=== PATIENT | female | born 1945 | race African-American/Black ===

== ENCOUNTER 2018-01-23 07:36 | Inpatient (IN) | payer OTHER, MEDICARE ==
[2018-01-23 07:59] VITALS: BMI 38.1
--- NOTE | 2018-01-23 08:54 | PDOC ---
History of Present Illness - General Chief Complaint: Revisit,Radiology Variance Stated Complaint: PCP SENT Time Seen by Provider: 01/23/18 08:15 History Source: Patient - History of Present Illness Initial Comments: 72 y/o F w/PMH of HTN, HLD, IDDM, GERD presents to the ER after being sent in by PCP. Pt had cardiac stress test done on January 15, 2018 which showed "Large sized moderate intensity anterior wall reversible perfusion defect consistent with ischemia. Large sized moderate intensity inferior wall reversible perfusion defect consistent with ischemia. Normal ejection fraction 59%." Pt has been having cold symptoms for the last 1.5 weeks which include dry cough and chest tightness due to the cough and she feels a drip down her throat. She is otherwise in her usual state of health, walking daily (2 laps/day) without issue. Denies CP, chest pressure, SOB, abd pain, diaphoresis, change in bowel movements, dysuria, LE edema, dysnpea on exertion, sick contacts, recent travel. Pt was told to come in last night but went to admissions rather than ER and came back in today through the ER. Last flight was in October to [place]. PMH: HTN, HLD, IDDM, GERD SH: Quit smoking 10 years ago (0.5-1ppd since a teenager); Social alcohol use; No drug use FH: Father passed from [place] in his 60s Allergies: NKDA Past History - Travel Traveled outside of the country in the last 30 days: No - Past Medical History Allergies/Adverse Reactions: Allergies Allergy/AdvReac Type Severity Reaction Status Date / Time No Known Allergies Allergy Verified 01/23/18 07:47 Home Medications: Ambulatory Orders Aspirin [ASA -] 81 mg PO DAILY 01/25/13 Glyburide/Metformin HCl [Glyburide-Metformin 5-500 mg] 1 each PO BID 01/25/13 Insulin (Levemir) [Levemir Flexpen -] 20 units SQ BID 01/25/13 Lisinopril/Hydrochlorothiazide [Lisinopril-Hctz 10-12.5 mg Tab] 1 each PO DAILY 01/25/13 Rosuvastatin Calcium [Crestor] 10 mg PO DAILY 01/25/13 Omeprazole 40 mg PO DAILY 01/23/18 COPD: No Diabetes: Yes HTN: Yes Hypercholesterolemia: Yes - Immunization History Immunization Up to Date: Yes - Suicide/Smoking/Psychosocial Hx Smoking Status: No Smoking History: Never smoked Number of Cigarettes Smoked Daily: 0 Review of Systems - Review of Systems Able to Perform ROS?: Yes Constitutional: No: Chills, Fever Respiratory: Yes: Cough (dry). No: Shortness of Breath, SOB with Exertion, SOB at Rest Cardiac (ROS): Yes: Chest Tightness. No: Chest Pain, Palpitations ABD/GI: No: Nausea, Vomiting : No: Dysuria *Physical Exam - Vital Signs Last Vital Signs Temp Pulse Resp BP Pulse Ox 99.2 F 74 18 143/72 99 01/23/18 07:47 01/23/18 07:47 01/23/18 07:47 01/23/18 07:47 01/23/18 07:47 - Physical Exam General Appearance: Yes: Nourished, Appropriately Dressed. No: Apparent Distress HEENT: positive: EOMI Neck: positive: Supple Respiratory/Chest: positive: Lungs Clear, Normal Breath Sounds. negative: Respiratory Distress Cardiovascular: positive: S1, S2, Murmur (diastolic murmur), Irregular Gastrointestinal/Abdominal: positive: Normal Bowel Sounds, Soft. negative: Tender Extremity: negative: Pedal Edema, Swelling, Erythema Neurologic: positive: Fully Oriented, Alert, Normal Mood/Affect ED Treatment Course - LABORATORY CBC & Chemistry Diagram: 01/23/18 08:54 01/23/18 08:54 Medical Decision Making - Medical Decision Making 01/23/18 08:58 Pt with abnormal stress test on 01/15/18: "Large sized moderate intensity anterior wall reversible perfusion defect consistent with ischemia. Large sized moderate intensity inferior wall reversible perfusion defect consistent with ischemia. Normal ejection fraction 59%." Sent in by PCP for chest pain and dyspnea. Pt has been having cough and chest tightness. Will check labs, UA, CXR, EKG, rectal temp. Will also r/o PNA at this time. Will give 325 mg aspirin at this time as well. 01/23/18 09:49 EKG shows: NSR w/PACs @ 81 bpm. QTc 453[address]. No [address] segment elevations or depressions noted. No TWI noted. 01/23/18 10:03 Labs unremarkable. Trop negative. 01/23/18 10:[address] Cesar on phone. He would also like to r/o PE at this time. To consult Dr. Le for Cardiology. Pt to be admitted under Dr. Pierson's service. Spoke with Dr. Neal regarding pt and to be admitted. CXR w/no acute pathology. Rectal temp 97.4 01/23/18 10:[address] Neal regarding pt and to be admitted. 01/23/18 10:47 D-dimer elevated at 619. Will get CTA to r/o PE. Spoke with patient regarding risks and benefits of CTA and pt is in agreement to get CTA chest to r/o PE. Will hydrate with NS @ 100 ml/hr (1ml/kg/hr). *DC/Admit/Observation/Transfer Diagnosis at time of Disposition: Abnormal stress test - Discharge Dispostion Decision to Admit order: Yes - Referrals Referrals: Juan Carlos Cesar MD [Primary Care Provider] - - Patient Instructions - Post Discharge Activity
[2018-01-23] MEDS ORDERED: ASPIRIN 81 MG CHEWABLE TABLETS PO ONE ×2 (08:59→09:57)
[2018-01-23 09:21] LABS: URINE APPEARANCE SLCLOUDY; URINE BILIRUBIN NEGATIVE (<2.0 mg/dL); URINE COLOR YELLOW; URINE GLUCOSE (UA) NEGATIVE (NEGATIVE); URINE KETONE TRACE (NEGATIVE); URINE LEUK ESTERASE 1+ (NEGATIVE); URINE NITRITE NEGATIVE (NEGATIVE); URINE PROTEIN NEGATIVE (NEGATIVE)
[2018-01-23 09:22] LABS: BASO % 1.2 % (0-2.0); EOS % 1.4 % (0-4.5); HEMATOCRIT 39.7 % (32.4-45.2); HEMOGLOBIN 12.7 GM/dL (10.7-15.3); LYMPH % 37.3 % (8-40); MCH 26.2 pg (25.7-33.7); MCHC 31.9 g/dl (32.0-36.0); MEAN PLT VOLUME 9.2 fl (7.5-11.1); MONO % 6.4 % (3.8-10.2); NEUT % 53.7 % (42.8-82.8); PLATELET COUNT 246 K/MM3 (134-434); RBC 4.84 M/mm3 (3.60-5.2); RDW 14.1 % (11.6-15.6); WHITE BLOOD COUNT 6.3 K/mm3 (4.0-10.0)
[2018-01-23] MEDS ORDERED: ASPIRIN 81 MG CHEWABLE TABLETS ONE ×2 (09:23→09:29)
[2018-01-23 09:36] LABS: EPI CELLS MODERATE /HPF (FEW); URINE BACTERIA RARE /hpf (NONE SEEN); URINE HYALINE CAST 4 /lpf; URINE MUCUS RARE
--- NOTE | 2018-01-23 09:48 | PDOC ---
Attending Attestation - Resident Resident Name: Jake Hale - ED Attending Attestation I have performed the following: I have examined & evaluated the patient, The case was reviewed & discussed with the resident, I agree w/resident's findings & plan, Exceptions are as noted (this is really her father of an [place] in the 60s) - HPI HPI: 01/23/18 09:44 9-year-old female history of hypertension diabetes hyperlipidemia here today complaining of recent cough nasal congestion and additional chest pain. Patient states that she has had a cough for a few days which is nonproductive. She does also have some postnasal drip no shortness of breath no wheezing denies any fevers or chills no nausea vomiting chest pain is described as a chest tightness she gets with intermittent coughing denies any current symptoms no history of prior PE or DVT no recent leg swelling no fevers no chills patient had a stress test done which was ordered by Dr. mena walked on January 14 which was noted for anterior and inferior defects she was told to come to the hospital yesterday has not yet had a coronary catheter - Physicial Exam PE: 01/23/18 09:46 Awake alert no acute distress lungs are clear bilaterally there is no chest wall tenderness heart is regular there is a noted systolic murmur 2 out of 6 abdomen is soft nontender nondistended extremities are warm and well-perfused there is no noted peripheral edema alert and oriented 3 strength is 5 out of 5 throughout skin is warm and dry - Medical Decision Making 01/23/18 09:46 32-year-old female multiple risk factors here today complaining of intermittent chest pain and cough. Due to the patient's recent abnormal stress and risk factors of diabetes hypertension hyperlipidemia and family history she will be admitted for cardiac rule out patient may require cardiac catheterization will discuss with Dr. 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 We will give her 324 aspirin currently x-ray to rule out any underlying pneumonia effusion or other lung abnormalities. EKG Heart Score/ECG Review #1 ECG reviewed & interpreted by me at: 09:48 General ECG Interpretation: Sinus Rhythm, Normal Rate (81), Normal Intervals, No acute ischemic changes Compared to previous ECG there are: Other (TWI III only, left axis. pvc.)
[2018-01-23 09:50] LABS: ALBUMIN 3.6 g/dl (3.4-5.0); ALK PHOS 91 U/L (45-117); ANION GAP 9 MMOL/L (8-16); BILIRUBIN,TOTAL 0.5 mg/dL (0.2-1); BLOOD UREA NITROGEN 17 mg/dL (7-18); CALCIUM 9.7 mg/dL (8.5-10.1); CHLORIDE 105 mmol/L (98-107); CO2 27 mmol/L (21-32); CREATININE 0.9 mg/dL (0.55-1.3); GLUCOSE,RANDOM 133 mg/dL (74-106); POTASSIUM 4.1 mmol/L (3.5-5.1); SGOT/AST 16 U/L (15-37); SGPT/ALT 20 U/L (13-61); SODIUM 141 mmol/L (136-145); TOT PROT 7.8 g/dl (6.4-8.2)
[2018-01-23] MEDS ORDERED: SODIUM CHLORIDE 1,000 ML IV SCH (11:15)
--- NOTE | 2018-01-23 11:15 | HP ---
Admitting History and Physical - Primary Care Physician PCP: Juan Carlos Cesar - Admission Chief Complaint: sent in for abnormal stress test History of Present Illness: 72 y/o F w/PMH of HTN, HLD, DM, GERD presents to the ER after being sent in by PCP. Pt had cardiac stress test done on January 15, 2018 which showed "Large sized moderate intensity anterior wall reversible perfusion defect consistent with ischemia. Large sized moderate intensity inferior wall reversible perfusion defect consistent with ischemia. Normal ejection fraction 59%." Pt has been having cold symptoms for the last 1.5 weeks which include dry cough and chest tightness due to the cough and she feels a drip down her throat. per patient she has this dry non productive cough for which she has been taking tussin. she denies chest pain,palpitations, no nausea no vomitting on labs noted to have elevated D dimer History Source: Patient, Medical Record - Past Medical History Cardiovascular: Yes: HTN, Hyperlipdemia Gastrointestinal: Yes: GERD Endocrine: Yes: Diabetes Mellitus - Smoking History Smoking history: Never smoked Aproximately how many cigarettes per day: 0 Home Medications - Allergies Allergies/Adverse Reactions: Allergies Allergy/AdvReac Type Severity Reaction Status Date / Time No Known Allergies Allergy Verified 01/23/18 07:47 - Home Medications Home Medications: Ambulatory Orders Aspirin [ASA -] 81 mg PO DAILY 01/25/13 Glyburide/Metformin HCl [Glyburide-Metformin 5-500 mg] 1 each PO BID 01/25/13 Insulin (Levemir) [Levemir Flexpen -] 20 units SQ BID 01/25/13 Lisinopril/Hydrochlorothiazide [Lisinopril-Hctz 10-12.5 mg Tab] 1 each PO DAILY 01/25/13 Rosuvastatin Calcium [Crestor] 10 mg PO DAILY 01/25/13 Omeprazole 40 mg PO DAILY 01/23/18 Review of Systems - Review of Systems Respiratory: reports: Cough Physical Examination Vital Signs: Vital Signs Temperature 97.4 F L 01/23/18 10:11 Pulse Rate 74 01/23/18 07:47 Respiratory Rate 18 01/23/18 07:47 Blood Pressure 143/72 01/23/18 07:47 O2 Sat by Pulse Oximetry (%) 100 01/23/18 09:07 Constitutional: Yes: Calm Cardiovascular: Yes: Regular Rate and Rhythm, Murmur, S1, S2 Respiratory: Yes: CTA Bilaterally Gastrointestinal: Yes: Normal Bowel Sounds, Soft Edema: No Neurological: Yes: Alert, Oriented Labs: CBC, BMP 01/23/18 08:54 01/23/18 08:54 Imaging - Results Chest X-ray: Report Reviewed (no active disease) Problem List - Problems (1) Elevated d-dimer Assessment/Plan: cta to r/o PE echo to evaluate aortic valve and right heart pressure Code(s): R79.89 - OTHER SPECIFIED ABNORMAL FINDINGS OF BLOOD CHEMISTRY (2) Abnormal stress test Assessment/Plan: tele cardiology eval aspirin lipitor lisinopril cardiac cath per cardiology request Code(s): R94.39 - ABNORMAL RESULT OF OTHER CARDIOVASCULAR FUNCTION STUDY (3) Diabetes Assessment/Plan: sliding scale levemir [id number] diabetic diet bgm ac/hs endocrine consult hold oral hypoglycemic to get CTA Code(s): E11.9 - TYPE 2 DIABETES MELLITUS WITHOUT COMPLICATIONS Qualifiers: Diabetes mellitus type: type 2 (4) HLD (hyperlipidemia) Assessment/Plan: statin lipid profile Code(s): E78.5 - HYPERLIPIDEMIA, UNSPECIFIED (5) HTN (hypertension) Assessment/Plan: on lisinopril and htcz Code(s): I10 - ESSENTIAL (PRIMARY) HYPERTENSION
[2018-01-23 11:59] LABS: CHOLESTEROL 143 mg/dL (50-200); HDL CHOLESTEROL 50 mg/dL (40-60); TRIGLYCERIDES 81 mg/dL (0-150)
--- NOTE | 2018-01-23 15:00 | EKG ---
Test Reason : Blood Pressure : / mmHG Vent. Rate : 081 BPM Atrial Rate : 081 BPM P-R Int : 134 ms QRS Dur : 076 ms QT Int : 390 ms P-R-T Axes : 052 -11 047 degrees QTc Int : 453 ms POOR DATA QUALITY, INTERPRETATION MAY BE ADVERSELY AFFECTED SINUS RHYTHM WITH PREMATURE ATRIAL COMPLEXES WITH ABERRANT CONDUCTION MINIMAL VOLTAGE CRITERIA FOR LVH, MAY BE NORMAL VARIANT BORDERLINE ECG WHEN COMPARED WITH ECG OF 17-OCT-2007 22:03, ABERRANT CONDUCTION IS NOW PRESENT Confirmed by JOSELYN CHI MD ([id number]) on 01/23/2018 3:00:14 PM Referred By: Confirmed By:JOSELYN CHI MD
--- NOTE | 2018-01-23 16:09 | ECHO ---
Name: IZA ARAUJO Exam:Adult Echocardiogram Study Date: 01/23/2018 02:56 PM Age: 72 yrs Reason For Study: CHECK AORTIC VALVE Height: 65 in Weight: 229 lb BSA: 2.1 m2 BP: 172/82 mmHg MMode/2D Measurements & Calculations IVSd: 0.91 cm Ao root diam: 2.8 cm LVIDd: 5.6 cm LA dimension: 3.9 cm LVIDs: 3.4 cm LVPWd: 0.89 cm EDV(Teich): 151.3 ml LVOT diam: 2.0 cm ESV(Teich): 49.0 ml Doppler Measurements & Calculations MV E max tiago: 71.3 cm/sec Ao V2 max: 373.5 cm/sec MV A max tiago: 114.1 cm/sec Ao max P.0 mmHg MV E/A: 0.62 Ao V2 mean: 264.5 cm/sec Ao mean P.8 mmHg Ao V2 VTI: 80.1 cm BIRGIT(I,D): 0.91 cm2 AI P1/2t: 529.9 msec BIRGIT(V,D): 0.95 cm2 AI max tiago: 363.7 cm/sec LV V1 max P.1 mmHg AI max P.0 mmHg LV V1 mean P.8 mmHg AI dec slope: 201.0 cm/sec2 LV V1 max: 112.5 cm/sec LV V1 mean: 79.4 cm/sec LV V1 VTI: 23.2 cm SV(LVOT): 73.2 ml Med Peak E' Tiago: 5.4 cm/sec Med E/e': 13.3 Procedure A complete two-dimensional transthoracic echocardiogram was performed (2D, M-mode, Doppler and color flow Doppler). Left Ventricle The left ventricular size, thickness and function are normal. The left ventricular ejection fraction is normal. Ejection Fraction = 60-65%. The left ventricular wall motion is normal. Right Ventricle The right ventricle is normal in size and function. Atria Normal left and right atrial size and function. Mitral Valve There is no mitral regurgitation noted. Tricuspid Valve No tricuspid regurgitation. There was insufficient TR detected to calculate RV systolic pressure. Aortic Valve Moderate valvular aortic stenosis. Mild to moderate aortic regurgitation. Pulmonic Valve There is no pulmonic valvular regurgitation. Great Vessels The aortic root is normal size. Pericardium/Pleura There is no pericardial effusion. Interpretation Summary The left ventricular size, thickness and function are normal The right ventricle is normal in size and function. Moderate valvular aortic stenosis. Mild to moderate aortic regurgitation. MD Jayro Mcknight 01/23/2018 04:09 PM
--- NOTE | 2018-01-23 16:31 | CON.CARD ---
Consult Consult Specialty:: Cardiology - History of Present Illness Chief Complaint: Chest pain History of Present Illness: This is a 72 F with a PMH of HTN, HLD, IDDM, and GERD. She had a nuclear stress test from her PCP on 01/15/18 which was positive anterior and inferior wall ischemia, Ef 59%. She developed a dry cough and complained of chest pain with the cough. Presently CP free. Chest CT negative for PE. Echocardiogram 01/23/18 Normal LV function BIRGIT 0.95 CM^2 - Past Medical History Cardio/Vascular: Yes: HTN, Hyperlipdemia Gastrointestinal: Yes: GERD Endocrine: Yes: Diabetes Mellitus - Smoking History Smoking history: Never smoked Aproximately how many cigarettes per day: 0 Home Medications - Allergies Allergies/Adverse Reactions: Allergies Allergy/AdvReac Type Severity Reaction Status Date / Time No Known Allergies Allergy Verified 01/23/18 07:47 - Home Medications Home Medications: Ambulatory Orders Aspirin [ASA -] 81 mg PO DAILY 01/25/13 Glyburide/Metformin HCl [Glyburide-Metformin 5-500 mg] 1 each PO BID 01/25/13 Insulin (Levemir) [Levemir Flexpen -] 20 units SQ BID 01/25/13 Lisinopril/Hydrochlorothiazide [Lisinopril-Hctz 10-12.5 mg Tab] 1 each PO DAILY 01/25/13 Rosuvastatin Calcium [Crestor] 10 mg PO DAILY 01/25/13 Omeprazole 40 mg PO DAILY 01/23/18 Review of Systems Findings/Remarks: per HPI Vital Signs: Vital Signs Temperature 97.4 F L 01/23/18 10:11 Pulse Rate 74 01/23/18 07:47 Respiratory Rate 18 01/23/18 14:44 Blood Pressure 143/72 01/23/18 07:47 O2 Sat by Pulse Oximetry (%) 100 01/23/18 14:44 Constitutional: Yes: Well Nourished Respiratory: Yes: CTA Bilaterally Gastrointestinal: Yes: Normal Bowel Sounds, Soft Cardiovascular: Yes: Regular Rate and Rhythm (NL S1S2 2/6 NATASHA RUSB radiating to the carotids) JVD: No Edema: No Neurological: Yes: Alert, Oriented (Nl S1S2, no MRHG) - Other Data Labs, Other Data: CBC, BMP 01/23/18 08:54 01/23/18 08:54 Troponin, BNP 10/11/18 08:54 Troponin I < 0.02 Troponin, BNP 01/23/18 08:54 Troponin I < 0.02 Assessment/Plan 72 F with a PMH of HTN, HLD, IDDM, and GERD. She had a nuclear stress test from her PCP on 01/15/18 which was positive anterior and inferior wall ischemia, Ef 59 %. She developed a dry cough and complained of chest pain with the cough. Presently CP free. Chest CT negative for PE. Echocardiogram 01/23/18 Normal LV function BIRGIT 0.95 CM^2 Chest Pain Positive Nuclear stress test Moderate Aortic Stenosis Will transfer to [facility] for cardiac cath. Arrangement made and awaiting a bed.
[2018-01-23] MEDS: INSULIN SLIDING SCALE (NOVOLOG) 1 VIAL SQ SCH ×2 (17:07→22:13)
[2018-01-23] MEDS: INSULIN (LEVEMIR) 100 UNITS/ML UNITS SQ SCH (22:09)
[2018-01-23] MEDS: HEPARIN NA (PORCINE) 5,000 UNITS/ML 1ML VIAL SQ SCH (22:09)
[2018-01-23] MEDS: ROSUVASTATIN CA 10 MG TABLET (FP) PO SCH (22:09)
[2018-01-24] MEDS: INSULIN SLIDING SCALE (NOVOLOG) 1 VIAL SQ SCH ×4 (06:01→21:40)
[2018-01-24 06:41] LABS: INR 0.98 (0.83-1.09); PROTHROMBIN TIME (PATIENT) 11.6 SEC (9.7-13.0)
[2018-01-24 06:43] LABS: ACTIVATED PTT 26.8 SECONDS (25.2-36.5)
[2018-01-24 06:45] LABS: BASO % 1.1 % (0-2.0); EOS % 2.9 % (0-4.5); HEMATOCRIT 37.3 % (32.4-45.2); HEMOGLOBIN 11.9 GM/dL (10.7-15.3); LYMPH % 47.5 % (8-40); MCH 26.2 pg (25.7-33.7); MEAN CELL VOLUME 81.9 fl (80-96); MEAN PLT VOLUME 10.1 fl (7.5-11.1); MONO % 8.4 % (3.8-10.2); NEUT % 40.1 % (42.8-82.8); RBC 4.56 M/mm3 (3.60-5.2); RDW 14.2 % (11.6-15.6); WHITE BLOOD COUNT 6.8 K/mm3 (4.0-10.0)
[2018-01-24 07:15] LABS: ALK PHOS 76 U/L (45-117); ANION GAP 5 MMOL/L (8-16); BILIRUBIN,TOTAL 0.4 mg/dL (0.2-1); BLOOD UREA NITROGEN 16 mg/dL (7-18); CALCIUM 9.3 mg/dL (8.5-10.1); CHLORIDE 111 mmol/L (98-107); CHOLESTEROL 113 mg/dL (50-200); CO2 26 mmol/L (21-32); CREATININE 0.8 mg/dL (0.55-1.3); GLUCOSE,RANDOM 94 mg/dL (74-106); HDL CHOLESTEROL 41 mg/dL (40-60); MAGNESIUM 2.2 mg/dL (1.8-2.4); PHOSPHOROUS 4.2 mg/dL (2.5-4.9); POTASSIUM 4.4 mmol/L (3.5-5.1); SGOT/AST 16 U/L (15-37); SGPT/ALT 17 U/L (13-61); SODIUM 142 mmol/L (136-145); TOT PROT 6.6 g/dl (6.4-8.2); TRIGLYCERIDES 97 mg/dL (0-150)
[2018-01-24] MEDS ORDERED: LISINOPRIL 10 MG TABLET (FP) PO SCH (08:00)
[2018-01-24 10:13] LABS: PLATELET COUNT 204 K/MM3 (134-434); PLATELET ESTIMATE ADEQUATE
[2018-01-24] MEDS: HEPARIN NA (PORCINE) 5,000 UNITS/ML 1ML VIAL SQ SCH ×2 (10:53→21:43)
--- NOTE | 2018-01-24 11:51 | PN ---
Progress Note, Physician Chief Complaint: Positive Nuclear stress test History of Present Illness: NAD, sitting in chair Denies chest pain, complains of mild SOB upon exertion CTA negative for PE, shows RUL 4.5 mm Pulmonary nodule awaiting transfer to [facility] Seen by Cardiology - Current Medication List Current Medications: Active Medications Heparin Sodium (Porcine) (Heparin -) 5,000 unit SQ BID [facility] Last Admin: 01/24/18 10:53 Dose: 5,000 unit Insulin Aspart (Novolog Vial Sliding Scale -) 1 vial SQ [facility]; Protocol Last Admin: 01/24/18 06:01 Dose: Not Given Insulin Detemir (Levemir Vial) 20 units SQ [facility] Last Admin: 01/23/18 22:09 Dose: 20 units Lisinopril (Prinivil) 10 mg PO DAILY@0800 [facility] Last Admin: 01/24/18 10:53 Dose: 10 mg Rosuvastatin Calcium (Crestor -) 10 mg PO [facility] Last Admin: 01/23/18 22:09 Dose: 10 mg - Objective Vital Signs: Vital Signs Temperature 98 F 01/24/18 10:52 Pulse Rate 77 01/24/18 10:52 Respiratory Rate 20 01/24/18 10:52 Blood Pressure 139/65 01/24/18 10:52 O2 Sat by Pulse Oximetry (%) 99 01/23/18 22:30 Constitutional: Yes: Well Nourished, No Distress, Calm, Obese Cardiovascular: Yes: Regular Rate and Rhythm Respiratory: Yes: Regular Gastrointestinal: Yes: Normal Bowel Sounds, Soft, Abdomen, Obese Musculoskeletal: Yes: WNL Extremities: Yes: WNL Edema: No Peripheral Pulses WNL: Yes Neurological: Yes: Alert, Oriented Psychiatric: Yes: Alert, Oriented Labs: CBC, BMP 01/24/18 05:30 01/24/18 05:30 INR, PTT INR 0.98 (0.83-1.09) 01/24/18 05:30 Problem List - Problems (1) Abnormal stress test Assessment/Plan: -Seen by Cardiology -Tele monitoring -Transfer to [facility] Code(s): R94.39 - ABNORMAL RESULT OF OTHER CARDIOVASCULAR FUNCTION STUDY (2) Diabetes Assessment/Plan: -BGM AC HS -Diabetic diet -Novolog sliding scale Code(s): E11.9 - TYPE 2 DIABETES MELLITUS WITHOUT COMPLICATIONS Qualifiers: Diabetes mellitus type: type 2 (3) HLD (hyperlipidemia) Assessment/Plan: -LDL at goal -Crestor 10 mg po daily Code(s): E78.5 - HYPERLIPIDEMIA, UNSPECIFIED (4) HTN (hypertension) Assessment/Plan: -Controlled -On Sascha Code(s): I10 - ESSENTIAL (PRIMARY) HYPERTENSION Assessment/Plan see problem list awaiting transfer to [facility]
--- NOTE | 2018-01-24 16:06 | PN ---
Progress Note, Physician Chief Complaint: Comfortable History of Present Illness: This is a 72 F with a PMH of HTN, HLD, IDDM, and GERD. She had a nuclear stress test from her PCP on 01/15/18 which was positive anterior and inferior wall ischemia, Ef 59%. She developed a dry cough and complained of chest pain with the cough. Presently CP free. Chest CT negative for PE. Echocardiogram 01/23/18 Normal LV function BIRGIT 0.95 CM^2 - Current Medication List Current Medications: Active Medications Heparin Sodium (Porcine) (Heparin -) 5,000 unit SQ BID [facility] Last Admin: 01/24/18 10:53 Dose: 5,000 unit Insulin Aspart (Novolog Vial Sliding Scale -) 1 vial SQ [facility]; Protocol Last Admin: 01/24/18 12:21 Dose: Not Given Insulin Detemir (Levemir Vial) 20 units SQ [facility] Last Admin: 01/23/18 22:09 Dose: 20 units Lisinopril (Prinivil) 10 mg PO DAILY@0800 [facility] Last Admin: 01/24/18 10:53 Dose: 10 mg Rosuvastatin Calcium (Crestor -) 10 mg PO [facility] Last Admin: 01/23/18 22:09 Dose: 10 mg - Objective Vital Signs: Vital Signs Temperature 98.6 F 01/24/18 14:00 Pulse Rate 81 01/24/18 14:00 Respiratory Rate 20 01/24/18 14:00 Blood Pressure 132/65 01/24/18 14:00 O2 Sat by Pulse Oximetry (%) 99 01/24/18 09:00 Constitutional: Yes: Well Nourished Eyes: Yes: WNL HENT: Yes: WNL Neck: Yes: WNL Cardiovascular: Yes: Regular Rate and Rhythm (APC's slighlty irregular NL S1S2, 2/6 SENM RUSB) Respiratory: Yes: CTA Bilaterally Gastrointestinal: Yes: Normal Bowel Sounds, Soft Extremities: Yes: WNL Edema: No Neurological: Yes: Alert, Oriented (Grossly non focal) Labs: CBC, BMP 01/24/18 05:30 01/24/18 05:30 INR, PTT INR 0.98 (0.83-1.09) 01/24/18 05:30 Assessment/Plan 72 F with a PMH of HTN, HLD, IDDM, and GERD. She had a nuclear stress test from her PCP on 01/15/18 which was positive anterior and inferior wall ischemia, Ef 59 %. She developed a dry cough and complained of chest pain with the cough. Presently CP free. Chest CT negative for PE. Echocardiogram 01/23/18 Normal LV function BIRGIT 0.95 CM^2 Chest Pain Positive Nuclear stress test Moderate Aortic Stenosis Will transfer to [facility] for cardiac cath. Arrangement made and awaiting a bed.
[2018-01-24] MEDS ORDERED: INSULIN (NOVOLOG) ASPART 100 UNITS/ML 10ML VIAL ONE (21:10)
[2018-01-24] MEDS: INSULIN (LEVEMIR) 100 UNITS/ML UNITS SQ SCH (21:43)
[2018-01-24] MEDS: ROSUVASTATIN CA 10 MG TABLET (FP) PO SCH (21:44)
--- NOTE | 2018-01-24 21:52 | CONSULT ---
Consult Consult Specialty:: endocrine Referred by:: joyce cao np Reason for Consultation:: diabetes mellitus hyperglycemia - History of Present Illness Chief Complaint: chest pain History of Present Illness: 72 y/o F w/PMH of HTN, HLD, DM, GERD presents to the ER after being sent in by PCP. Pt had cardiac stress test done on January 15, 2018 which showed "Large sized moderate intensity anterior wall reversible perfusion defect consistent with ischemia. Normal ejection fraction 59%." Pt has been having cold symptoms for the last 1.5 weeks which include dry cough,chest pain,back radiation.with recent elevated blood sugars,no nausea vomiting fever or chills - Past Medical History Cardio/Vascular: Yes: HTN, Hyperlipdemia Gastrointestinal: Yes: GERD Endocrine: Yes: Diabetes Mellitus - Alcohol/Substance Use Hx Alcohol Use: No - Smoking History Smoking history: Never smoked Have you smoked in the past 12 months: No Aproximately how many cigarettes per day: 0 Home Medications - Allergies Allergies/Adverse Reactions: Allergies Allergy/AdvReac Type Severity Reaction Status Date / Time No Known Allergies Allergy Verified 01/23/18 07:47 - Home Medications Home Medications: Ambulatory Orders Aspirin [ASA -] 81 mg PO DAILY 01/25/13 Glyburide/Metformin HCl [Glyburide-Metformin 5-500 mg] 1 each PO BID 01/25/13 Insulin (Levemir) [Levemir Flexpen -] 20 units SQ BID 01/25/13 Lisinopril/Hydrochlorothiazide [Lisinopril-Hctz 10-12.5 mg Tab] 1 each PO DAILY 01/25/13 Rosuvastatin Calcium [Crestor] 10 mg PO DAILY 01/25/13 Omeprazole 40 mg PO DAILY 01/23/18 Review of Systems - Review of Systems Constitutional: reports: Weakness Eyes: reports: No Symptoms HENT: reports: No Symptoms Neck: reports: No Symptoms Cardiovascular: reports: Shortness of Breath Respiratory: reports: Exercise Intolerance, SOB on Exertion Gastrointestinal: reports: Bloating, Constipation Genitourinary: reports: No Symptoms Breasts: reports: No Symptoms Reported Musculoskeletal: reports: Joint Pain, Muscle Cramps, Muscle Weakness Integumentary: reports: No Symptoms Neurological: reports: Numbness, Weakness Endocrine: reports: Unexplained Weight Gain Physical Exam Vital Signs: Vital Signs Temperature 98.0 F 01/24/18 18:00 Pulse Rate 69 01/24/18 18:00 Respiratory Rate 20 01/24/18 18:00 Blood Pressure 114/49 L 01/24/18 18:00 O2 Sat by Pulse Oximetry (%) 99 01/24/18 09:00 Constitutional: Yes: Anxious Eyes: Yes: EOM Intact HENT: Yes: Normocephalic Neck: Yes: Trachea Midline Cardiovascular: Yes: Regular Rate and Rhythm Respiratory: Yes: CTA Bilaterally Gastrointestinal: Yes: Normal Bowel Sounds ...Rectal Exam: Yes: Deferred Renal/: Yes: WNL Musculoskeletal: Yes: WNL Edema: No Neurological: Yes: Alert, Oriented, Numbness Labs: CBC, BMP 01/24/18 05:30 01/24/18 05:30 Problem List - Problems (1) Diabetes mellitus with hyperosmolarity Code(s): E11.00 - TYPE 2 DIAB W HYPROSM W/O NONKET HYPRGLY-HYPROS COMA ([facility]) (2) Abnormal stress test Code(s): R94.39 - ABNORMAL RESULT OF OTHER CARDIOVASCULAR FUNCTION STUDY (3) Diabetes Code(s): E11.9 - TYPE 2 DIABETES MELLITUS WITHOUT COMPLICATIONS Qualifiers: Diabetes mellitus type: type 2 (4) Elevated d-dimer Code(s): R79.89 - OTHER SPECIFIED ABNORMAL FINDINGS OF BLOOD CHEMISTRY (5) HLD (hyperlipidemia) Code(s): E78.5 - HYPERLIPIDEMIA, UNSPECIFIED (6) HTN (hypertension) Code(s): I10 - ESSENTIAL (PRIMARY) HYPERTENSION Assessment/Plan Current Active Problems Abnormal stress test (Acute) Diabetes (Acute) Elevated d-dimer (Acute) HLD (hyperlipidemia) (Acute) HTN (hypertension) (Acute) Abnormal Lab Results 01/24/18 01/24/18 01/24/18 05:30 05:30 05:30 Neutrophils % 40.1 L D Lymphocytes % 47.5 H D Chloride 111 H Anion Gap 5 L Hemoglobin A1c % 8.9 H B-Natriuretic Peptide 136.0 H Albumin 3.0 L Laboratory Results - last 24 hr 01/23/18 01/23/18 01/24/18 17:06 21:54 05:30 WBC 6.8 RBC 4.56 Hgb 11.9 Hct 37.3 MCV 81.9 MCH 26.2 MCHC 32.0 RDW 14.2 Plt Count 204 MPV 10.1 Absolute Neuts (auto) 2.7 Neutrophils % 40.1 L D Lymphocytes % 47.5 H D Monocytes % 8.4 Eosinophils % 2.9 D Basophils % 1.1 Nucleated RBC % 0 Platelet Estimate Adequate PT with INR INR PTT (Actin FS) Sodium Potassium Chloride Carbon Dioxide Anion Gap BUN Creatinine Creat Clearance w eGFR POC Glucometer [id number] Random Glucose Hemoglobin A1c % Calcium Phosphorus Magnesium Total Bilirubin AST ALT Alkaline Phosphatase Creatine Kinase Troponin I B-Natriuretic Peptide Total Protein Albumin Triglycerides Cholesterol Total LDL Cholesterol HDL Cholesterol 01/24/18 01/24/18 01/24/18 05:30 05:30 05:30 WBC RBC Hgb Hct MCV MCH MCHC RDW Plt Count MPV Absolute Neuts (auto) Neutrophils % Lymphocytes % Monocytes % Eosinophils % Basophils % Nucleated RBC % Platelet Estimate PT with INR 11.60 INR 0.98 PTT (Actin FS) 26.8 Sodium 142 Potassium 4.4 Chloride 111 H Carbon Dioxide 26 Anion Gap 5 L BUN 16 Creatinine 0.8 Creat Clearance w eGFR > 60 POC Glucometer Random Glucose 94 Hemoglobin A1c % 8.9 H Calcium 9.3 Phosphorus 4.2 Magnesium 2.2 Total Bilirubin 0.4 AST 16 ALT 17 Alkaline Phosphatase 76 Creatine Kinase 147 Troponin I < 0.02 B-Natriuretic Peptide 136.0 H Total Protein 6.6 Albumin 3.0 L Triglycerides 97 Cholesterol 113 Total LDL Cholesterol 66 HDL Cholesterol 41 01/24/18 01/24/18 01/24/18 06:00 12:10 17:34 WBC RBC Hgb Hct MCV MCH MCHC RDW Plt Count MPV Absolute Neuts (auto) Neutrophils % Lymphocytes % Monocytes % Eosinophils % Basophils % Nucleated RBC % Platelet Estimate PT with INR INR PTT (Actin FS) Sodium Potassium Chloride Carbon Dioxide Anion Gap BUN Creatinine Creat Clearance w eGFR POC Glucometer 109 94 118 Random Glucose Hemoglobin A1c % Calcium Phosphorus Magnesium Total Bilirubin AST ALT Alkaline Phosphatase Creatine Kinase Troponin I B-Natriuretic Peptide Total Protein Albumin Triglycerides Cholesterol Total LDL Cholesterol HDL Cholesterol 01/24/18 21:16 WBC RBC Hgb Hct MCV MCH MCHC RDW Plt Count MPV Absolute Neuts (auto) Neutrophils % Lymphocytes % Monocytes % Eosinophils % Basophils % Nucleated RBC % Platelet Estimate PT with INR INR PTT (Actin FS) Sodium Potassium Chloride Carbon Dioxide Anion Gap BUN Creatinine Creat Clearance w eGFR POC Glucometer 189 Random Glucose Hemoglobin A1c % Calcium Phosphorus Magnesium Total Bilirubin AST ALT Alkaline Phosphatase Creatine Kinase Troponin I B-Natriuretic Peptide Total Protein Albumin Triglycerides Cholesterol Total LDL Cholesterol HDL Cholesterol Laboratory Tests 01/24/18 01/24/18 01/24/18 05:30 05:30 06:00 Sodium 142 Potassium 4.4 Chloride 111 H Carbon Dioxide 26 Anion Gap 5 L BUN 16 Creatinine 0.8 POC Glucometer 109 Random Glucose 94 Hemoglobin A1c % 8.9 H Calcium 9.3 Triglycerides 97 Cholesterol 113 HDL Cholesterol 41 01/24/18 01/24/18 01/24/18 12:10 17:34 21:16 Sodium Potassium Chloride Carbon Dioxide Anion Gap BUN Creatinine POC Glucometer 94 118 189 Random Glucose Hemoglobin A1c % Calcium Triglycerides Cholesterol HDL Cholesterol plan: bgm qid novolog insulin doses Current Medications Generic Name Dose Route Start Last Admin Trade Name Freq PRN Reason Stop Dose Admin Heparin Sodium (Porcine) 5,000 unit 01/23/18 22:00 01/24/18 21:43 Heparin - SQ 5,000 unit BID ANSELMO Administration Insulin Aspart 1 vial 01/23/18 16:30 01/24/18 21:40 Novolog Vial Sliding Scale - SQ Not Given [facility] Protocol Insulin Detemir 20 units 01/23/18 22:00 01/24/18 21:43 Levemir Vial SQ 20 units HS [facility] Administration Lisinopril 10 mg 01/24/18 08:00 01/24/18 10:53 Prinivil PO 10 mg DAILY@0800 [facility] Administration Rosuvastatin Calcium 10 mg 01/23/18 22:00 01/24/18 21:44 Crestor - PO 10 mg HS ANSELMO Administration
[2018-01-25 03:40] VITALS: BP 134/75; PULSE 86; TEMP 98.6
--- NOTE | 2018-01-25 10:28 | EKG ---
Test Reason : Blood Pressure : / mmHG Vent. Rate : 073 BPM Atrial Rate : 073 BPM P-R Int : 168 ms QRS Dur : 082 ms QT Int : 408 ms P-R-T Axes : 066 012 054 degrees QTc Int : 449 ms SINUS RHYTHM WITH PREMATURE SUPRAVENTRICULAR COMPLEXES NONSPECIFIC T WAVE ABNORMALITY ABNORMAL ECG WHEN COMPARED WITH ECG OF 23-JAN-2018 09:43, NO SIGNIFICANT CHANGE WAS FOUND Confirmed by ZACHARY CALLES MD ([id number]) on 01/25/2018 10:28:31 AM Referred By: JACQUELIN RICHARDSON Confirmed By:ZACHARY CALLES MD
== END 2018-01-25 03:30 | disposition short-term general hospital (02) | DRG 303 ==
LOC: JER 07:36 → JERBED 10:43 → J4W 21:46
PROVIDERS: ADMIT Family Medicine; ATTEND Family Medicine
DX: I25.9 Chronic ischemic heart disease, unspecified (principal); R94.39 Abnormal result of other cardiovascular function study; E11.65 Type 2 diabetes mellitus with hyperglycemia; I10 Essential (primary) hypertension; E78.5 Hyperlipidemia, unspecified; K21.9 Gastro-esophageal reflux disease without esophagitis; Z87.891 Personal history of nicotine dependence; I35.0 Nonrheumatic aortic (valve) stenosis; Z79.4 Long term (current) use of insulin; R91.1 Solitary pulmonary nodule; R05 Cough
CPT/HCPCS: 36415; 71046-TC-FY; 71275-TC; 80053; 80061; 81003; 81015; 82550; 82962; 83036; 83721; 83735; 83880; 84100; 84484; 85025; 85379; 85610; 85730; 93005; 93010; 93306-TC; 99285-25; J1644; J7030

== ENCOUNTER 2018-05-11 05:13 | Observation (INO) | payer OTHER, MEDICARE ==
[2018-05-11 05:25] VITALS: BMI 31.3
--- NOTE | 2018-05-11 05:58 | PDOC ---
History of Present Illness - General Chief Complaint: Shortness of Breath Stated Complaint: SHORTNESS OF BREATH Time Seen by Provider: 05/11/18 05:25 History Source: Patient Exam Limitations: No Limitations - History of Present Illness Initial Comments: 05/11/18 05:56 Pt is a 72yo F with PMH of HTN, HLD, NIDDM presenting to ED with SOB upon exertion. Pt states that for the past 2 days she feels short of breath when she walks around a track outside. Pt states that she usually never felt this way. She is also endorsing nasal congestion and a drip with dry cough. Denies chest pain, syncope, palpitations, recent travel, new leg swelling, calf pain, productive cough, fevers, chills, back pain, neck pain, headache. PMD: Tali PMH: see hpi PSH: none Allergies: nkda Social: denies Past History - Past Medical History Allergies/Adverse Reactions: Allergies Allergy/AdvReac Type Severity Reaction Status Date / Time No Known Allergies Allergy Verified 05/11/18 05:22 Home Medications: Ambulatory Orders Aspirin [ASA -] 81 mg PO DAILY 01/25/13 Glyburide/Metformin HCl [Glyburide-Metformin 5-500 mg] 1 each PO BID 01/25/13 Insulin (Levemir) [Levemir Flexpen -] 20 units SQ BID 01/25/13 Lisinopril/Hydrochlorothiazide [Lisinopril-Hctz 10-12.5 mg Tab] 1 each PO DAILY 01/25/13 Rosuvastatin Calcium [Crestor] 10 mg PO DAILY 01/25/13 Omeprazole 40 mg PO DAILY 01/23/18 Ergocalciferol (Vitamin D2) [Vitamin D2] 50,000 unit PO WEEKLY 05/11/18 Metoprolol Succinate [Toprol Xl] 25 mg PO DAILY 05/11/18 COPD: No Diabetes: Yes HTN: Yes Hypercholesterolemia: Yes - Immunization History Immunization Up to Date: Yes - Suicide/Smoking/Psychosocial Hx Smoking Status: No Smoking History: Never smoked Have you smoked in the past 12 months: No Number of Cigarettes Smoked Daily: 0 Information on smoking cessation initiated: No Hx Alcohol Use: No Drug/Substance Use Hx: No Review of Systems - Review of Systems Constitutional: No: Chills, Fever, Night Sweats HEENTM: Yes: Nose Congestion. No: Blurred Vision, Nose Bleeding, Mouth Pain Respiratory: Yes: Cough, SOB with Exertion. No: SOB at Rest, Wheezing, Productive cough, Hemoptysis Cardiac (ROS): No: Chest Pain, Lightheadedness, Palpitations, Syncope ABD/GI: No: Constipated, Diarrhea, Nausea, Rectal Bleeding, Vomiting, Abdominal cramping, Tarry Stools : No: Burning, Dysuria Musculoskeletal: No: Symptoms Reported Integumentary: No: Symptoms Reported Neurological: No: Headache, Numbness, Tingling *Physical Exam - Vital Signs Last Vital Signs Temp Pulse Resp BP Pulse Ox 98.7 F 89 18 168/78 95 05/11/18 05:22 05/11/18 05:22 05/11/18 05:22 05/11/18 05:22 05/11/18 05:22 - Physical Exam General Appearance: Yes: Appropriately Dressed, Obese. No: Apparent Distress HEENT: positive: EOMI, MAXIME. negative: Pale Conjunctivae, Scleral Icterus (R), Scleral Icterus (L) Neck: positive: Trachea midline, Supple. negative: Lymphadenopathy (R), Lymphadenopathy (L) Respiratory/Chest: positive: Lungs Clear, Normal Breath Sounds. negative: Crackles, Rales, Rhonchi, Stridor, Wheezing Cardiovascular: positive: Regular Rhythm, Regular Rate, S1, S2, Systolic Murmur. negative: Edema, JVD Vascular Pulses: Carotid (R): 2+, Carotid (L): 2+, Dorsalis-Pedis (R): 2+, Doralis-Pedis (L): 2+ Gastrointestinal/Abdominal: positive: Normal Bowel Sounds, Soft. 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 intact, Fully Oriented, Alert, Normal Mood/ Affect, Normal Response, Motor Strength 5/5 Moderate Sedation - Procedure Monitoring Vital Signs: Procedure Monitoring Vital Signs Temperature 98.7 F 05/11/18 05:22 Pulse Rate 89 05/11/18 05:22 Respiratory Rate 18 05/11/18 05:22 Blood Pressure 168/78 05/11/18 05:22 O2 Sat by Pulse Oximetry (%) 95 05/11/18 05:22 Heart Score/ECG Review - History History: Moderately suspicious - Age Age: >/= 65 - Risk Factors Risk Factors Heart Score: Yes Hx Hypercholesterolemia, Yes Hx Hypertension, Yes Hx Diabetes Based on the list above the patient has:: >/=3 risk factors or Hx atherosclerotic disease ED Treatment Course - LABORATORY CBC & Chemistry Diagram: 05/11/18 05:42 05/11/18 05:42 - RADIOLOGY Radiology Studies Ordered: Category Date Time Status CHEST X-RAY PORTABLE* [RAD] Stat Radiology 05/11/18 05:26 Ordered Medical Decision Making - Medical Decision Making 05/11/18 05:58 Pt is a 72yo F with PMH of HTN, HLD, NIDDM presenting to ED with SOB upon exertion. Pt states that for the past 2 days she feels short of breath when she walks around a track outside. Pt states that she usually never felt this way. She is also endorsing nasal congestion and a drip with dry cough. Denies chest pain, syncope, palpitations, recent travel, new leg swelling, calf pain, productive cough, fevers, chills, back pain, neck pain, headache. Vitals: wnl PE: holosystolic murmur. No pedal edema, lungs cta. SOB with exertion concerning for pulmonary or cardiac etiology. Given clear lungs on exam, lower suspicion for PNA. Low suspicion for PE. Pt has 3+ risk factors for developing ACS. Will likely need admission for ACS rule out -cbc, cmp, troponin -ekg, cxr *DC/Admit/Observation/Transfer Diagnosis at time of Disposition: SOB (shortness of breath) - Discharge Dispostion Condition at time of disposition: Good Decision to Admit order: Yes - Referrals - Patient Instructions - Post Discharge Activity
--- NOTE | 2018-05-11 06:00 | PDOC ---
Attending Attestation - Resident Resident Name: LivGianna - ED Attending Attestation I have performed the following: I have examined & evaluated the patient, The case was reviewed & discussed with the resident, I agree w/resident's findings & plan - HPI HPI: 05/11/18 05:58 Pt comes with SOB with exertion. She feels like she has a postnasal drip that is causing mucus to cover her trachea and not allowing her to breathe. Pt feels that she needs flonase. Pt also has chest pain palpitations. He BP was higher than usual today. - Physicial Exam PE: 05/11/18 05:59 Agree with resident exam - Medical Decision Making 05/11/18 05:59 Cardiac enzymes and basic labs; CXR and reeval with a 2nd cardiac enzyme. EKG is NSR. 05/11/18 07:08 cardiac enzyme normal; pt will need 2 to 3 serial enzymes. Heart Score/ECG Review - ECG Intrepretation Rhythm: Regular Rhythm - [place]: Normal - P and AL Prominent R with upright T in V1 (true posterior [place]): No Delta Wave(s) Present: No WPW: No - QRS Poor R Wave Progression: No Q Wave Present: No - ST and T Early Repolarization: No Non Specific ST-T Wave changes: No Flattened T Waves: No Prolonged Q-T Interval: No - ECG Impressions Normal ECG: Yes Non-specific ST Elevation: No Ischemic Changes: No Bradycardia: No Torsades jose elias Pointes: No WPW: No
[2018-05-11] MEDS ORDERED: FLUTICASONE PROP 0.05% 16 GM NASAL SPRAY NS ONE (06:02)
[2018-05-11 06:28] LABS: EOS % 2.1 % (0-4.5); HEMOGLOBIN 12.2 GM/dL (10.7-15.3); LYMPH % 27.4 % (8-40); MCH 27.7 pg (25.7-33.7); MCHC 33.8 g/dl (32.0-36.0); MEAN CELL VOLUME 81.9 fl (80-96); MEAN PLT VOLUME 9.4 fl (7.5-11.1); NEUT % 63.5 % (42.8-82.8); PLATELET COUNT 233 K/MM3 (134-434); RDW 14.3 % (11.6-15.6); WHITE BLOOD COUNT 7.2 K/mm3 (4.0-10.0)
[2018-05-11 06:57] LABS: ALBUMIN 3.4 g/dl (3.4-5.0); ALK PHOS 95 U/L (45-117); ANION GAP 8 MMOL/L (8-16); BILIRUBIN,TOTAL 0.4 mg/dL (0.2-1); BLOOD UREA NITROGEN 22 mg/dL (7-18); CALCIUM 8.9 mg/dL (8.5-10.1); CHLORIDE 107 mmol/L (98-107); CO2 24 mmol/L (21-32); CREATININE 0.8 mg/dL (0.55-1.3); GLUCOSE,RANDOM 134 mg/dL (74-106); POTASSIUM 4.3 mmol/L (3.5-5.1); SGOT/AST 23 U/L (15-37); SGPT/ALT 28 U/L (13-61); SODIUM 139 mmol/L (136-145); TOT PROT 7.3 g/dl (6.4-8.2)
[2018-05-11] MEDS ORDERED: VALSARTAN 40 MG TABLET (FP) PO ONE (07:06)
[2018-05-11] MEDS ORDERED: VALSARTAN 80 MG TABLET (UD) ONE (07:38)
[2018-05-11] MEDS ORDERED: metoPROLOL SUCCINATE 25 MG TAB.SR.24H (FP) PO ONE (07:53)
--- NOTE | 2018-05-11 08:59 | PDOC ---
*Physical Exam - Vital Signs Last Vital Signs Temp Pulse Resp BP Pulse Ox 98.7 F 89 18 168/78 100 05/11/18 05:22 05/11/18 05:22 05/11/18 05:22 05/11/18 05:22 05/11/18 07:51 ED Treatment Course - LABORATORY CBC & Chemistry Diagram: 05/11/18 05:42 05/11/18 05:42 - ADDITIONAL ORDERS Additional order review: Laboratory Results 05/11/18 05/11/18 05:42 05:42 Sodium 139 Potassium 4.3 Chloride 107 Carbon Dioxide 24 Anion Gap 8 BUN 22 H Creatinine 0.8 Creat Clearance w eGFR > 60 Random Glucose 134 H Calcium 8.9 Total Bilirubin 0.4 AST 23 ALT 28 Alkaline Phosphatase 95 Troponin I 0.02 Total Protein 7.3 Albumin 3.4 05/11/18 05:42 RBC 4.40 MCV 81.9 MCHC 33.8 RDW 14.3 MPV 9.4 Neutrophils % 63.5 D Lymphocytes % 27.4 D Monocytes % 6.0 Eosinophils % 2.1 Basophils % 1.0 - Medications Given in the ED: ED Medications Discontinued Medications Generic Name Dose Route Start Last Admin Trade Name Freq PRN Reason Stop Dose Admin Fluticasone Propionate 2 spray 05/11/18 06:02 05/11/18 07:06 Flonase - NS 05/11/18 06:03 2 spr ONCE ONE Administration Metoprolol Succinate 25 mg 05/11/18 07:53 05/11/18 07:57 Toprol Xl - PO 05/11/18 07:54 25 mg ONCE ONE Administration Valsartan 40 mg 05/11/18 07:06 05/11/18 07:48 Diovan - PO 05/11/18 07:07 Not Given ONCE ONE Medical Decision Making - Medical Decision Making Received sign out from Dr. Peck. CXR showed possible atelectasis vs small amount of fluid on right, otherwise benign. D/w HOME CARE SPECIALIST for Dr. Pierson/Tali service. Patient will be admitted for tele obs. Placed consultations to pulmonology (Dr. Rucker) and cardiology (Dr. Le) per HOME CARE SPECIALIST. Ordered repeat troponin. 05/11/18 08:55 *DC/Admit/Observation/Transfer Diagnosis at time of Disposition: SOB (shortness of breath) - Discharge Dispostion Condition at time of disposition: Good - Referrals Referrals: Juan Carlos Cesar MD [Primary Care Provider] - - Patient Instructions - Post Discharge Activity
--- NOTE | 2018-05-11 11:01 | EKG ---
Test Reason : Blood Pressure : / mmHG Vent. Rate : 081 BPM Atrial Rate : 081 BPM P-R Int : 164 ms QRS Dur : 078 ms QT Int : 388 ms P-R-T Axes : 070 016 052 degrees QTc Int : 450 ms SINUS RHYTHM WITH PREMATURE SUPRAVENTRICULAR COMPLEXES POSSIBLE LEFT ATRIAL ENLARGEMENT NONSPECIFIC ST ABNORMALITY Confirmed by ZACHARY CALLES MD ([id number]) on 05/11/2018 11:01:19 AM Referred By: Confirmed By:ZACHARY CALLES MD
--- NOTE | 2018-05-11 15:11 | CON.PULM ---
Consult Consult Specialty:: PULMONARY Referred by:: NANCY Reason for Consultation:: SOB - History of Present Illness Chief Complaint: PRESENTLY IMPROVED. HAD SOB YESTERDAY History of Present Illness: Pt is a 72yo F with PMH of HTN, HLD, NIDDM presenting to ED with SOB upon exertion. Pt states that for the past 2 days she feels short of breath when she walks around a track outside. Pt states that she usually never felt this way. She is also endorsing nasal congestion and a drip with dry cough. Denies chest pain, syncope, palpitations, recent travel, new leg swelling, calf pain, productive cough, fevers, chills, back pain, neck pain, headache. 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 No: AFIB, CT Pulmonary: No: Asthma, COPD, O2 Dependent Gastrointestinal: Yes: GERD. No: Ascites Hepatobiliary: No: Cirrhosis Renal/: No: Renal Failure Reproductive: Yes: Ectopic ...: No Heme/Onc: No: Anemia Endocrine: Yes: Diabetes Mellitus - Past Surgical History Additional Surgical History: ECTOPIC IN PAST - Alcohol/Substance Use Hx Alcohol Use: No - Smoking History Smoking history: Former smoker Have you smoked in the past 12 months: No Aproximately how many cigarettes per day: 0 If you are a former smoker, when did you quit?: 2010 - Social History ADL: Independent Place of : [facility] History of Recent Travel: No Home Medications - Allergies Allergies/Adverse Reactions: Allergies Allergy/AdvReac Type Severity Reaction Status Date / Time No Known Allergies Allergy Verified 05/11/18 05:22 - Home Medications Home Medications: Ambulatory Orders Aspirin [ASA -] 81 mg PO DAILY 01/25/13 Glyburide/Metformin HCl [Glyburide-Metformin 5-500 mg] 1 each PO BID 01/25/13 Insulin (Levemir) [Levemir Flexpen -] 20 units SQ BID 01/25/13 Lisinopril/Hydrochlorothiazide [Lisinopril-Hctz 10-12.5 mg Tab] 1 each PO DAILY 01/25/13 Rosuvastatin Calcium [Crestor] 10 mg PO DAILY 01/25/13 Omeprazole 40 mg PO DAILY 01/23/18 Ergocalciferol (Vitamin D2) [Vitamin D2] 50,000 unit PO WEEKLY 05/11/18 Metoprolol Succinate [Toprol Xl] 25 mg PO DAILY 05/11/18 Family Disease History - Family Disease History Family History: Unremarkable Review of Systems - Review of Systems Constitutional: denies: Fever Eyes: denies: Blurred Vision HENT: denies: Difficult Swallowing, Throat Pain Cardiovascular: denies: Chest Pain Respiratory: reports: SOB. denies: Cough Gastrointestinal: denies: Abdominal Pain Genitourinary: denies: Burning Physical Exam Vital Sings: Vital Signs Temperature 98.7 F 05/11/18 05:22 Pulse Rate 74 05/11/18 14:38 Respiratory Rate 18 05/11/18 14:38 Blood Pressure 144/55 L 05/11/18 14:38 O2 Sat by Pulse Oximetry (%) 100 05/11/18 14:38 Constitutional: Yes: Calm Eyes: Yes: EOM Intact HENT: Yes: Normocephalic Neck: Yes: Trachea Midline Cardiovascular: Yes: Regular Rate and Rhythm Respiratory: Yes: CTA Bilaterally Gastrointestinal: Yes: Abdomen, Obese Edema: No Labs: CBC, BMP 05/11/18 05:42 05/11/18 05:42 Imaging - Results Chest X-ray: Report Reviewed, Image Reviewed EKG: Report Reviewed Problem List - Problems (1) SOB (shortness of breath) Code(s): R06.02 - SHORTNESS OF BREATH (2) Abnormal stress test Code(s): R94.39 - ABNORMAL RESULT OF OTHER CARDIOVASCULAR FUNCTION STUDY (3) Diabetes Code(s): E11.9 - TYPE 2 DIABETES MELLITUS WITHOUT COMPLICATIONS (4) HLD (hyperlipidemia) Code(s): E78.5 - HYPERLIPIDEMIA, UNSPECIFIED (5) HTN (hypertension) Code(s): I10 - ESSENTIAL (PRIMARY) HYPERTENSION Assessment/Plan NONDESCRIPT FEELING OF CHEST DISCOMFORT AND SOB YESTERDAY/ASYMPTOMATIC TODAY HAD NORMAL CARDIAC CATH JANUARY 2018 INSULIN DEP DIABETIC/FORMER DISTANT SMOKER RHINITIS ON FLONASE TROPS X2 NEGATIVE CXR NO INFILTRATE OR EFFUSION/POSSIBLE PROMINENT FISSURE ON RIGHT ECHO WILL NEED PFT'S UPON DISCHARGE SCREEN FOR SLEEP APNEA LOW INDEX OF SUSPICION FOR PE LIKELY LARGE COMPONENT OF DE-CONDITIONED STATE WILL FOLLOW THANK YOU Flaquita ORTEGA MD
--- NOTE | 2018-05-11 16:50 | CON.CARD ---
Consult Consult Specialty:: Cardiology - History of Present Illness Chief Complaint: Dyspnea History of Present Illness: 72F with Moderate aortic stenosis, mild moderate airtic regurgitation and normal coronary anatomy without CAD on recent cath 01/2018. Developed URI symptoms with one bout of transient dyspnea with effort which has not recurred. no palpitations. 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 No: AFIB, [place] Pulmonary: No: Asthma, COPD, O2 Dependent Gastrointestinal: Yes: GERD. No: Ascites Hepatobiliary: No: Cirrhosis Renal/: No: Renal Failure ...: No Endocrine: Yes: Diabetes Mellitus - Past Surgical History Additional Surgical History: ECTOPIC IN PAST - Alcohol/Substance Use Hx Alcohol Use: No - Smoking History Smoking history: Former smoker Have you smoked in the past 12 months: No Aproximately how many cigarettes per day: 0 If you are a former smoker, when did you quit?: 2010 - Social History ADL: Independent History of Recent Travel: No Home Medications - Allergies Allergies/Adverse Reactions: Allergies Allergy/AdvReac Type Severity Reaction Status Date / Time No Known Allergies Allergy Verified 05/11/18 05:22 - Home Medications Home Medications: Ambulatory Orders Aspirin [ASA -] 81 mg PO DAILY 01/25/13 Glyburide/Metformin HCl [Glyburide-Metformin 5-500 mg] 1 each PO BID 01/25/13 Insulin (Levemir) [Levemir Flexpen -] 20 units SQ BID 01/25/13 Lisinopril/Hydrochlorothiazide [Lisinopril-Hctz 10-12.5 mg Tab] 1 each PO DAILY 01/25/13 Rosuvastatin Calcium [Crestor] 10 mg PO DAILY 01/25/13 Omeprazole 40 mg PO DAILY 01/23/18 Ergocalciferol (Vitamin D2) [Vitamin D2] 50,000 unit PO WEEKLY 05/11/18 Metoprolol Succinate [Toprol Xl] 25 mg PO DAILY 05/11/18 Review of Systems - Review of Systems Constitutional: denies: Chills, Fever, Lethargy, Weakness Eyes: reports: No Symptoms HENT: reports: No Symptoms Neck: reports: No Symptoms Cardiovascular: reports: No Symptoms. denies: Chest Pain, Edema, Palpitations, Shortness of Breath Respiratory: reports: Cough, SOB, SOB on Exertion Gastrointestinal: reports: No Symptoms Vital Signs: Vital Signs Temperature 98.7 F 05/11/18 05:22 Pulse Rate 74 05/11/18 14:38 Respiratory Rate 18 05/11/18 14:38 Blood Pressure 144/55 L 05/11/18 14:38 O2 Sat by Pulse Oximetry (%) 100 05/11/18 14:38 Constitutional: Yes: Well Nourished, No Distress Eyes: Yes: Conjunctiva Clear, EOM Intact HENT: Yes: Atraumatic, Normocephalic Neck: Yes: Supple, Trachea Midline Respiratory: Yes: Regular, CTA Bilaterally Gastrointestinal: Yes: Normal Bowel Sounds, Soft Cardiovascular: Yes: Regular Rate and Rhythm Heart Sounds: Yes: S1, S2 Murmur: Yes: Systolic Murmur, Grade 2 Musculoskeletal: Yes: WNL Extremities: Yes: WNL Edema: No - Other Data Labs, Other Data: CBC, BMP 05/11/18 05:42 05/11/18 05:42 Troponin, BNP 05/11/18 05/11/18 05:42 08:58 Troponin I 0.02 0.02 Troponin, BNP 05/11/18 05/11/18 05:42 08:58 Troponin I 0.02 0[address] [facility] - Results Chest X-ray: Report Reviewed Problem List - Problems (1) SOB (shortness of breath) Code(s): R06.02 - SHORTNESS OF BREATH Assessment/Plan 72F with Moderate aortic stenosis, mild moderate airtic regurgitation and normal coronary anatomy without CAD on recent cath 01/2018. Developed URI symptoms with one bout of transient dyspnea with effort which has not recurred. no palpitations. Moderate on recent assessment. No evidence of arrhythmia or heart failure. BRTINEY negative with recent normal cath Will see as needed.
--- NOTE | 2018-05-11 18:48 | HP ---
Admitting History and Physical - Primary Care Physician PCP: Juan Carlos Cesar - Admission Chief Complaint: SOB on exertion History of Present Illness: Patient is a 72 y/o female patient with past medical history of HTN, DMII, HLD. Patient presented to ER with complaints of SOB on exertion. She states this began yesterday while walking her dog which subsided when she slowed down walking. Patient states she did experience intermittent episodes of SOB after. Patient has hx of abnormal stress test in 2018. Patient denies chest pain, SOB, and dizziness on exam. 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 No: AFIB, [place] Pulmonary: No: Asthma, COPD, O2 Dependent Gastrointestinal: Yes: GERD. No: Ascites Hepatobiliary: No: Cirrhosis Renal/: No: Renal Failure ...: No Heme/Onc: No: Anemia Endocrine: Yes: Diabetes Mellitus - Past Surgical History Past Surgical History: Yes: Appendectomy - Smoking History Smoking history: Former smoker Have you smoked in the past 12 months: No Aproximately how many cigarettes per day: 0 If you are a former smoker, when did you quit?: 2010 - Alcohol/Substance Use Hx Alcohol Use: No History of Substance Use: reports: None - Social History Usual Living Arrangement: Yes: Alone ADL: Independent History of Recent Travel: No Home Medications - Allergies Allergies/Adverse Reactions: Allergies Allergy/AdvReac Type Severity Reaction Status Date / Time No Known Allergies Allergy Verified 05/11/18 05:22 - Home Medications Home Medications: Ambulatory Orders Aspirin [ASA -] 81 mg PO DAILY 01/25/13 Glyburide/Metformin HCl [Glyburide-Metformin 5-500 mg] 1 each PO BID 01/25/13 Insulin (Levemir) [Levemir Flexpen -] 20 units SQ BID 01/25/13 Lisinopril/Hydrochlorothiazide [Lisinopril-Hctz 10-12.5 mg Tab] 1 each PO DAILY 01/25/13 Rosuvastatin Calcium [Crestor] 10 mg PO DAILY 01/25/13 Omeprazole 40 mg PO DAILY 01/23/18 Ergocalciferol (Vitamin D2) [Vitamin D2] 50,000 unit PO WEEKLY 05/11/18 Metoprolol Succinate [Toprol Xl] 25 mg PO DAILY 05/11/18 Review of Systems - Review of Systems Constitutional: reports: No Symptoms Eyes: reports: No Symptoms HENT: reports: No Symptoms Neck: reports: No Symptoms Cardiovascular: reports: Shortness of Breath Respiratory: reports: SOB on Exertion Gastrointestinal: reports: No Symptoms Genitourinary: reports: No Symptoms Breasts: reports: No Symptoms Reported Musculoskeletal: reports: No Symptoms Integumentary: reports: No Symptoms Neurological: reports: No Symptoms Endocrine: reports: No Symptoms Hematology/Lymphatic: reports: No Symptoms Psychiatric: reports: No Symptoms Physical Examination Vital Signs: Vital Signs Temperature 98.7 F 05/11/18 05:22 Pulse Rate 74 05/11/18 14:38 Respiratory Rate 18 05/11/18 14:38 Blood Pressure 144/55 L 05/11/18 14:38 O2 Sat by Pulse Oximetry (%) 100 05/11/18 14:38 Constitutional: Yes: No Distress, Calm, Obese Eyes: Yes: Conjunctiva Clear HENT: Yes: Normocephalic Neck: Yes: Supple Cardiovascular: Yes: Regular Rate and Rhythm Respiratory: Yes: Regular, CTA Bilaterally Gastrointestinal: Yes: Normal Bowel Sounds, Soft Musculoskeletal: Yes: WNL Extremities: Yes: WNL Edema: No Neurological: Yes: Alert, Oriented Psychiatric: Yes: Alert, Oriented Labs: CBC, BMP 05/11/18 05:42 05/11/18 05:42 Troponin, BNP 05/11/18 05/11/18 05:42 08:58 Troponin I 0.02 0.02 Imaging - Results Chest X-ray: Report Reviewed EKG: Report Reviewed Problem List - Problems (1) SOB (shortness of breath) Assessment/Plan: -pulm on board -O2 via [place] PRN for SOB -keep SpO2 >90% -sleep study and PFT as outpatient Code(s): R06.02 - SHORTNESS OF BREATH (2) Diabetes Assessment/Plan: -cont with glipizide-metformin 5mg/500mg PO BID -diabetic diet -BGM ACHS -HgA1c Code(s): E11.9 - TYPE 2 DIABETES MELLITUS WITHOUT COMPLICATIONS (3) HLD (hyperlipidemia) Assessment/Plan: -cont rosuvastatin 10mg -lipid profile Code(s): E78.5 - HYPERLIPIDEMIA, UNSPECIFIED (4) HTN (hypertension) Assessment/Plan: -cont lisinopril 10mg daily -cardiology consult appreciated -low Na diet Code(s): I10 - ESSENTIAL (PRIMARY) HYPERTENSION Assessment/Plan dvt ppx see problem list
[2018-05-11] MEDS ORDERED: ROSUVASTATIN CA 10 MG TABLET (FP) PO SCH (22:00)
[2018-05-11] MEDS: FLUTICASONE PROP 0.05% 16 GM NASAL SPRAY NS SCH (23:45)
[2018-05-12] MEDS ORDERED: metFORMIN HCL 500 MG TABLET (FP) ONE (06:03)
[2018-05-12] MEDS ORDERED: glipiZIDE 5 MG TABLET (FP) ONE (06:03)
[2018-05-12] MEDS ORDERED: metFORMIN HCL 500 MG TABLET (FP) PO SCH (07:00)
[2018-05-12] MEDS ORDERED: glipiZIDE 5 MG TABLET (FP) PO SCH (07:00)
[2018-05-12 07:47] LABS: CHOLESTEROL 133 mg/dL (50-200); HDL CHOLESTEROL 46 mg/dL (40-60); TRIGLYCERIDES 83 mg/dL (0-150)
[2018-05-12] MEDS ORDERED: HEMOQUE TEST 1 EACH EACH ONE (08:15)
[2018-05-12] MEDS ORDERED: LISINOPRIL 10 MG TABLET (FP) PO SCH (10:00)
[2018-05-12] MEDS ORDERED: PANTOPRAZOLE 40 MG TABLET (FP) PO SCH (10:00)
[2018-05-12] MEDS ORDERED: ASPIRIN COATED 81 MG TABLET.EC PO SCH (10:00)
[2018-05-12] MEDS ORDERED: LISINOPRIL 5 MG TABLET (FP) ONE (10:36)
[2018-05-12] MEDS ORDERED: ASPIRIN COATED 81 MG TABLET.EC ONE (10:36)
[2018-05-12] MEDS ORDERED: PANTOPRAZOLE 40 MG TABLET (FP) ONE (10:36)
[2018-05-12] MEDS: FLUTICASONE PROP 0.05% 16 GM NASAL SPRAY NS SCH (10:37)
[2018-05-12 10:48] VITALS: BP 139/65; PULSE 83; TEMP 98.5
--- NOTE | 2018-05-12 10:59 | DS ---
Physical Examination Vital Signs: Vital Signs Temperature 98.5 F 05/12/18 10:47 Pulse Rate 83 05/12/18 10:47 Respiratory Rate 18 05/12/18 10:47 Blood Pressure 139/65 05/12/18 10:47 O2 Sat by Pulse Oximetry (%) 100 05/12/18 10:47 Constitutional: Yes: Calm Cardiovascular: Yes: Regular Rate and Rhythm, Murmur, S1, S2 Respiratory: Yes: CTA Bilaterally Gastrointestinal: Yes: Normal Bowel Sounds, Soft Edema: No Neurological: Yes: Alert, Oriented Labs: CBC, BMP 05/11/18 05:42 05/11/18 05:42 Discharge Summary Reason For Visit: SHORTNESS OF BREATH Current Active Problems SOB (shortness of breath) (Acute) Hospital Course: PCP: Juan Carlos Cesar - Admission Chief Complaint: SOB on exertion History of Present Illness: Patient is a 72 y/o female patient with past medical history of HTN, DMII, HLD. Patient presented to ER with complaints of SOB on exertion. She states this began yesterday while walking her dog which subsided when she slowed down walking. Patient states she did experience intermittent episodes of SOB after. Patient has hx of abnormal stress test in 2018. Patient denies chest pain, SOB, and dizziness on exam. normal coronary anatomy without CAD on recent cath 01/2018 seen by cardiology and pulmonary- stable to go home has PND joe give claritin saline nasal sprays and flonase Condition: Good - Instructions Diet, Activity, Other Instructions: pulmonary function test as an outpatient Referrals: Juan Carlos Cesar MD [Primary Care Provider] - Disposition: HOME - Home Medications Comprehensive Discharge Medication List: Ambulatory Orders Aspirin [ASA -] 81 mg PO DAILY 01/25/13 Glyburide/Metformin HCl [Glyburide-Metformin 5-500 mg] 1 each PO BID 01/25/13 Insulin (Levemir) [Levemir Flexpen -] 20 units SQ BID 01/25/13 Lisinopril/Hydrochlorothiazide [Lisinopril-Hctz 10-12.5 mg Tab] 1 each PO DAILY 01/25/13 Rosuvastatin Calcium [Crestor] 10 mg PO DAILY 01/25/13 Omeprazole 40 mg PO DAILY 01/23/18 Ergocalciferol (Vitamin D2) [Vitamin D2] 50,000 unit PO WEEKLY 05/11/18 Metoprolol Succinate [Toprol Xl] 25 mg PO DAILY 05/11/18
== END 2018-05-12 11:26 | disposition home or self-care (01) ==
LOC: JER 05:13 → JERBED 06:50
PROVIDERS: ADMIT Family Medicine; ATTEND Family Medicine
PROC: 3E0F7GC Introduction of Other Therapeutic Substance into Respiratory Tract, Via Natural or Artificial Opening (ICD-10-PCS; principal; 2018-05-11)
DX: R06.02 Shortness of breath (principal); R94.39 Abnormal result of other cardiovascular function study; I10 Essential (primary) hypertension; E78.5 Hyperlipidemia, unspecified; E11.9 Type 2 diabetes mellitus without complications; Z79.82 Long term (current) use of aspirin; Z79.84 Long term (current) use of oral hypoglycemic drugs
CPT/HCPCS: 36415; 71045-TC-FY; 80053; 80061; 82550; 82962; 83036; 83721; 84484; 85025; 93005; 93010; 94640; 99285-25; G0378

== ENCOUNTER 2020-07-31 09:17 | Inpatient (IN) | payer OTHER, MEDICARE ==
[2020-07-31] MEDS ORDERED: metoPROLOL SUCCINATE 25 MG TAB.SR.24H (FP) PO ONE (09:51)
[2020-07-31] MEDS ORDERED: LACTATED RINGERS SOLUTION 1000 ML INFUS.BAG IV ONE (09:56)
[2020-07-31] MEDS ORDERED: ACETAMINOPHEN 1000 MG/100 ML VIAL (NON FORMULARY) IVPB ONE (10:06)
[2020-07-31] MEDS ORDERED: SODIUM CHLORIDE 0.9% 500 ML INFUS.BAG IV ONE ×2 (10:06→12:10)
[2020-07-31] MEDS ORDERED: ACETAMINOPHEN INJECTION 100 ML IVPB ONE (10:42)
[2020-07-31 11:02] LABS: VENOUS BASE EXCESS 0.3 mmol/L (-2-2); VENOUS O2 SATURATION 60.8 % (70-80); VENOUS PCO2 41.8 mmHg (38-52); VENOUS PH 7.398 (7.310-7.410)
[2020-07-31 11:03] LABS: HEMATOCRIT 28.1 % (32.4-45.2); HEMOGLOBIN 8.7 GM/dL (10.7-15.3); MCH 23.4 pg (25.7-33.7); MEAN CELL VOLUME 75.5 fl (80-96); MEAN PLT VOLUME 9.5 fl (7.5-11.1); PLATELET COUNT 330 K/MM3 (134-434); RBC 3.72 M/mm3 (3.60-5.2); RDW 15.4 % (11.6-15.6); WHITE BLOOD COUNT 14.5 K/mm3 (4.0-10.0)
[2020-07-31 11:07] LABS: URINE APPEARANCE CLOUDY; URINE BILIRUBIN NEGATIVE (NEGATIVE); URINE COLOR YELLOW; URINE GLUCOSE (UA) NEGATIVE (NEGATIVE); URINE KETONE NEGATIVE (NEGATIVE); URINE LEUK ESTERASE NEGATIVE (NEGATIVE); URINE NITRITE NEGATIVE (NEGATIVE); URINE PROTEIN NEGATIVE (NEGATIVE)
[2020-07-31 11:12] LABS: CALCIUM 9.4 mg/dL (8.5-10.1)
[2020-07-31 11:13] LABS: ALBUMIN 3.4 g/dl (3.4-5.0); BLOOD UREA NITROGEN 25.8 mg/dL (7-18)
[2020-07-31 11:17] LABS: BILIRUBIN,DIRECT 0.2 mg/dL (0.0-0.2); BILIRUBIN,TOTAL 0.6 mg/dL (0.2-1); TOT PROT 7.5 g/dl (6.4-8.2)
[2020-07-31 11:53] LABS: INR 0.97 (0.83-1.09); PROTHROMBIN TIME (PATIENT) 11.9 SEC (9.7-13.0)
[2020-07-31 11:55] LABS: ACTIVATED PTT 24.6 SECONDS (25.2-36.5)
[2020-07-31] MEDS ORDERED: AMOX TR/POT CLAV 875MG/125MG TABLETS (FP) PO ONE (12:07)
[2020-07-31] MEDS ORDERED: AMOX TR/POT CLAV 875MG/125MG TABLETS (FP) ONE ×2 (12:19→18:10)
[2020-07-31 13:07] LABS: ANISOCYTOSIS 2+; MACROCYTOSIS 1+; OVALOCYTE 1+; PLATELET ESTIMATE NORMAL
[2020-07-31] MEDS ORDERED: ACETAMINOPHEN 325 MG TABLET (FP) PO PRN (16:38)
[2020-07-31] MEDS: AMOX TR/POT CLAV 875MG/125MG TABLETS (FP) PO SCH (18:16)
[2020-07-31] MEDS: SODIUM CHLORIDE NASAL SPRAY 44 ML BOTTLE NS SCH (22:19)
[2020-07-31] MEDS: INSULIN SLIDING SCALE (NOVOLOG) 1 VIAL SQ SCH (22:20)
[2020-07-31 22:49] VITALS: BMI 38.7
[2020-08-01] MEDS: INSULIN SLIDING SCALE (NOVOLOG) 1 VIAL SQ SCH ×4 (06:56→21:00)
[2020-08-01 08:35] LABS: HEMATOCRIT 26.1 % (32.4-45.2); HEMOGLOBIN 8.3 GM/dL (10.7-15.3); MCH 23.7 pg (25.7-33.7); MCHC 31.8 g/dl (32.0-36.0); MEAN CELL VOLUME 74.6 fl (80-96); MEAN PLT VOLUME 9.2 fl (7.5-11.1); PLATELET COUNT 318 K/MM3 (134-434); RDW 15.8 % (11.6-15.6); WHITE BLOOD COUNT 15.8 K/mm3 (4.0-10.0)
[2020-08-01] MEDS ORDERED: PT OWN MED DRAWER 7, Y5N ONE (09:14)
[2020-08-01] MEDS: AMOX TR/POT CLAV 875MG/125MG TABLETS (FP) PO SCH ×2 (09:36→17:13)
[2020-08-01] MEDS: SODIUM CHLORIDE NASAL SPRAY 44 ML BOTTLE NS SCH ×2 (09:36→21:02)
[2020-08-01] MEDS: metoPROLOL SUCCINATE 25 MG TAB.SR.24H (FP) PO SCH (09:36)
[2020-08-01] MEDS: PANTOPRAZOLE 40 MG TABLET PO SCH (09:36)
[2020-08-01] MEDS: ROSUVASTATIN CA 10 MG TABLET (FP) PO SCH (09:36)
[2020-08-01] MEDS ORDERED: FERRIC CARBOXYMALTOSE 750 MG in SODIUM CHLORIDE 250 ML IVPB ONE (13:00)
[2020-08-01] MEDS ORDERED: ONDANSETRON 4 MG/2 ML VIAL IVPUSH PRN (16:38)
[2020-08-02] MEDS: INSULIN SLIDING SCALE (NOVOLOG) 1 VIAL SQ SCH ×4 (06:34→21:26)
[2020-08-02] MEDS ORDERED: INSULIN (NOVOLOG) ASPART 100 UNITS/ML 10ML VIAL SQ SCH (07:00)
[2020-08-02] MEDS ORDERED: IRON SUCROSE INJECTION 200 MG in SODIUM CHLORIDE 90 ML IVPB ONE (07:29)
[2020-08-02] MEDS: AMOX TR/POT CLAV 875MG/125MG TABLETS (FP) PO SCH ×2 (08:07→16:39)
[2020-08-02] MEDS: PANTOPRAZOLE 40 MG TABLET PO SCH (09:22)
[2020-08-02] MEDS: ROSUVASTATIN CA 10 MG TABLET (FP) PO SCH (09:22)
[2020-08-02] MEDS: metoPROLOL SUCCINATE 25 MG TAB.SR.24H (FP) PO SCH (09:22)
[2020-08-02] MEDS: SODIUM CHLORIDE NASAL SPRAY 44 ML BOTTLE NS SCH ×2 (09:23→21:25)
[2020-08-02] MEDS: POLYETHYLENE GLYCOL 3350 119 GM BTL PO SCH ×2 (13:38→21:26)
[2020-08-03] MEDS: POLYETHYLENE GLYCOL 3350 119 GM BTL PO SCH ×3 (05:52→22:41)
[2020-08-03] MEDS: INSULIN SLIDING SCALE (NOVOLOG) 1 VIAL SQ SCH ×4 (06:03→22:41)
[2020-08-03 08:43] LABS: BASO % 1.5 % (0-2.0); EOS % 1.8 % (0-4.5); HEMATOCRIT 27.2 % (32.4-45.2); HEMOGLOBIN 8.8 GM/dL (10.7-15.3); LYMPH % 26.1 % (8-40); MCH 24.3 pg (25.7-33.7); MCHC 32.3 g/dl (32.0-36.0); MEAN CELL VOLUME 75.2 fl (80-96); MEAN PLT VOLUME 9.1 fl (7.5-11.1); MONO % 7.4 % (3.8-10.2); NEUT % 63.2 % (42.8-82.8); PLATELET COUNT 319 K/MM3 (134-434); RBC 3.61 M/mm3 (3.60-5.2); RDW 15.1 % (11.6-15.6); RETICULOCYTES 2.16 % (0.5-1.5); WHITE BLOOD COUNT 7.3 K/mm3 (4.0-10.0)
[2020-08-03] MEDS ORDERED: IRON SUCROSE INJECTION 200 MG in SODIUM CHLORIDE 90 ML IVPB ONE (10:30)
[2020-08-03] MEDS ORDERED: PT OWN MED DRAWER 7, Y5N ONE ×3 (10:53→18:23)
[2020-08-03] MEDS: AMOX TR/POT CLAV 875MG/125MG TABLETS (FP) PO SCH ×2 (10:55→18:25)
[2020-08-03] MEDS: PANTOPRAZOLE 40 MG TABLET PO SCH (10:55)
[2020-08-03] MEDS: metoPROLOL SUCCINATE 25 MG TAB.SR.24H (FP) PO SCH (10:55)
[2020-08-03] MEDS: ROSUVASTATIN CA 10 MG TABLET (FP) PO SCH (10:55)
[2020-08-03] MEDS: SODIUM CHLORIDE NASAL SPRAY 44 ML BOTTLE NS SCH ×2 (10:57→22:41)
[2020-08-03] MEDS ORDERED: INSULIN (NOVOLOG) ASPART 100 UNITS/ML 10ML VIAL ONE (11:27)
[2020-08-04] MEDS: POLYETHYLENE GLYCOL 3350 119 GM BTL PO SCH ×3 (06:05→22:08)
[2020-08-04] MEDS: INSULIN SLIDING SCALE (NOVOLOG) 1 VIAL SQ SCH ×4 (06:08→22:12)
[2020-08-04 07:43] LABS: BASO % 0.5 % (0-2.0); EOS % 1.8 % (0-4.5); HEMATOCRIT 26.6 % (32.4-45.2); HEMOGLOBIN 8.5 GM/dL (10.7-15.3); LYMPH % 28.2 % (8-40); MCH 24.1 pg (25.7-33.7); MCHC 31.9 g/dl (32.0-36.0); MEAN CELL VOLUME 75.6 fl (80-96); MEAN PLT VOLUME 8.8 fl (7.5-11.1); MONO % 9.1 % (3.8-10.2); NEUT % 60.4 % (42.8-82.8); PLATELET COUNT 321 K/MM3 (134-434); RBC 3.51 M/mm3 (3.60-5.2); RDW 15.5 % (11.6-15.6); WHITE BLOOD COUNT 7.2 K/mm3 (4.0-10.0)
[2020-08-04 08:13] LABS: ALBUMIN 3.1 g/dl (3.4-5.0); CALCIUM 9.3 mg/dL (8.5-10.1)
[2020-08-04 08:16] LABS: BILIRUBIN,TOTAL 0.3 mg/dL (0.2-1); CREATININE 0.9 mg/dL (0.55-1.3); TOT PROT 7.1 g/dl (6.4-8.2)
[2020-08-04] MEDS: AMOX TR/POT CLAV 875MG/125MG TABLETS (FP) PO SCH ×2 (08:42→18:01)
[2020-08-04] MEDS ORDERED: PEG 3350/NA SULF BICARB CL/KCL 4000 ML SOLN.RECON PO ONE (09:00)
[2020-08-04] MEDS: PANTOPRAZOLE 40 MG TABLET PO SCH (09:19)
[2020-08-04] MEDS: metoPROLOL SUCCINATE 25 MG TAB.SR.24H (FP) PO SCH (09:19)
[2020-08-04] MEDS: SODIUM CHLORIDE NASAL SPRAY 44 ML BOTTLE NS SCH ×2 (09:19→22:13)
[2020-08-04] MEDS: ROSUVASTATIN CA 10 MG TABLET (FP) PO SCH (09:19)
[2020-08-04 19:06] LABS: GLIADIN ANTIBODY IGA 8 units (0-19); GLIADIN ANTIBODY IGG 2 units (0-19); TRANSGLUTAMINASE IGG < 2 U/mL (0-5)
[2020-08-04] MEDS ORDERED: BISACODYL 5 MG TABLET.DR (FP) PO ONE (20:00)
[2020-08-05] MEDS: POLYETHYLENE GLYCOL 3350 119 GM BTL PO SCH ×3 (05:57→21:20)
[2020-08-05] MEDS: INSULIN SLIDING SCALE (NOVOLOG) 1 VIAL SQ SCH ×4 (06:20→21:24)
[2020-08-05 08:13] LABS: BASO % 1.1 % (0-2.0); EOS % 2.4 % (0-4.5); HEMATOCRIT 26.8 % (32.4-45.2); HEMOGLOBIN 8.6 GM/dL (10.7-15.3); MCH 24.2 pg (25.7-33.7); MCHC 32.1 g/dl (32.0-36.0); MEAN CELL VOLUME 75.3 fl (80-96); MEAN PLT VOLUME 9.1 fl (7.5-11.1); MONO % 7.7 % (3.8-10.2); NEUT % 58.8 % (42.8-82.8); PLATELET COUNT 274 K/MM3 (134-434); RBC 3.57 M/mm3 (3.60-5.2); WHITE BLOOD COUNT 7.9 K/mm3 (4.0-10.0)
[2020-08-05 08:31] LABS: CALCIUM 8.9 mg/dL (8.5-10.1)
[2020-08-05 08:32] LABS: BLOOD UREA NITROGEN 7.4 mg/dL (7-18)
[2020-08-05 08:35] LABS: CREATININE 0.9 mg/dL (0.55-1.3)
[2020-08-05 08:37] LABS: BILIRUBIN,TOTAL 0.5 mg/dL (0.2-1); TOT PROT 6.9 g/dl (6.4-8.2)
[2020-08-05] MEDS ORDERED: PT OWN MED DRAWER 7, Y5N ONE (08:51)
[2020-08-05] MEDS: ROSUVASTATIN CA 10 MG TABLET (FP) PO SCH (09:20)
[2020-08-05] MEDS: SODIUM CHLORIDE NASAL SPRAY 44 ML BOTTLE NS SCH ×2 (09:20→21:23)
[2020-08-05] MEDS: metoPROLOL SUCCINATE 25 MG TAB.SR.24H (FP) PO SCH (09:20)
[2020-08-05] MEDS: AMOX TR/POT CLAV 875MG/125MG TABLETS (FP) PO SCH ×2 (09:20→17:22)
[2020-08-05] MEDS: PANTOPRAZOLE 40 MG TABLET PO SCH (09:23)
[2020-08-05] MEDS ORDERED: ETOMIDATE 20 MG/10 ML AMPUL IVPUSH ONE ×2 (14:22→14:49)
[2020-08-05] MEDS ORDERED: TETRACAINE/BENZOCAINE/BUTAMBEN 20 GM SPR TP ONE (14:25)
[2020-08-05] MEDS ORDERED: LIDOCAINE VISCOUS 2% ORAL/TOP 20 ML UNIT-DOSE CUP ONE (14:26)
[2020-08-05] MEDS ORDERED: LIDOCAINE VISCOUS 2% ORAL/TOP 20 ML UNIT-DOSE CUP PO ONE (14:30)
[2020-08-05] MEDS ORDERED: INSULIN (NOVOLOG) ASPART 100 UNITS/ML 10ML VIAL ONE (21:22)
[2020-08-06] MEDS: POLYETHYLENE GLYCOL 3350 119 GM BTL PO SCH ×3 (05:54→22:55)
[2020-08-06] MEDS: INSULIN SLIDING SCALE (NOVOLOG) 1 VIAL SQ SCH ×4 (06:50→22:55)
[2020-08-06 08:39] LABS: BASO % 0.6 % (0-2.0); EOS % 2.7 % (0-4.5); HEMATOCRIT 27.7 % (32.4-45.2); LYMPH % 27.6 % (8-40); MCH 24.4 pg (25.7-33.7); MCHC 32.5 g/dl (32.0-36.0); MEAN CELL VOLUME 75.2 fl (80-96); MEAN PLT VOLUME 8.8 fl (7.5-11.1); MONO % 7.9 % (3.8-10.2); NEUT % 61.2 % (42.8-82.8); PLATELET COUNT 354 K/MM3 (134-434); RBC 3.68 M/mm3 (3.60-5.2); RDW 15.7 % (11.6-15.6); WHITE BLOOD COUNT 8.2 K/mm3 (4.0-10.0)
[2020-08-06 08:41] LABS: INR 1.03 (0.83-1.09); PROTHROMBIN TIME (PATIENT) 12.6 SEC (9.7-13.0)
[2020-08-06 08:58] LABS: ALBUMIN 3.1 g/dl (3.4-5.0); BLOOD UREA NITROGEN 7.6 mg/dL (7-18); CALCIUM 9.3 mg/dL (8.5-10.1)
[2020-08-06 09:02] LABS: CREATININE 0.8 mg/dL (0.55-1.3)
[2020-08-06 09:03] LABS: BILIRUBIN,TOTAL 0.3 mg/dL (0.2-1); TOT PROT 6.9 g/dl (6.4-8.2)
[2020-08-06] MEDS: PANTOPRAZOLE 40 MG TABLET PO SCH (09:20)
[2020-08-06] MEDS: AMOX TR/POT CLAV 875MG/125MG TABLETS (FP) PO SCH ×2 (09:20→17:51)
[2020-08-06] MEDS: metoPROLOL SUCCINATE 25 MG TAB.SR.24H (FP) PO SCH (09:20)
[2020-08-06] MEDS: ROSUVASTATIN CA 10 MG TABLET (FP) PO SCH (09:20)
[2020-08-06] MEDS: SODIUM CHLORIDE NASAL SPRAY 44 ML BOTTLE NS SCH ×2 (09:22→22:56)
[2020-08-07] MEDS: POLYETHYLENE GLYCOL 3350 119 GM BTL PO SCH ×3 (06:47→22:14)
[2020-08-07] MEDS: INSULIN SLIDING SCALE (NOVOLOG) 1 VIAL SQ SCH ×4 (06:48→22:13)
[2020-08-07 09:00] LABS: ALBUMIN 2.9 g/dl (3.4-5.0); BLOOD UREA NITROGEN 7.6 mg/dL (7-18); CALCIUM 9.1 mg/dL (8.5-10.1); HEMATOCRIT 27.2 % (32.4-45.2); HEMOGLOBIN 8.7 GM/dL (10.7-15.3); MCH 24.5 pg (25.7-33.7); MCHC 31.9 g/dl (32.0-36.0); MEAN CELL VOLUME 76.8 fl (80-96); MEAN PLT VOLUME 9.2 fl (7.5-11.1); PLATELET COUNT 327 K/MM3 (134-434); RBC 3.55 M/mm3 (3.60-5.2); RDW 15.7 % (11.6-15.6); WHITE BLOOD COUNT 7.8 K/mm3 (4.0-10.0)
[2020-08-07 09:03] LABS: CREATININE 0.9 mg/dL (0.55-1.3)
[2020-08-07 09:05] LABS: BILIRUBIN,TOTAL 0.3 mg/dL (0.2-1); TOT PROT 6.8 g/dl (6.4-8.2)
[2020-08-07] MEDS: metoPROLOL SUCCINATE 25 MG TAB.SR.24H (FP) PO SCH (09:14)
[2020-08-07] MEDS: AMOX TR/POT CLAV 875MG/125MG TABLETS (FP) PO SCH (09:14)
[2020-08-07] MEDS: PANTOPRAZOLE 40 MG TABLET PO SCH (09:14)
[2020-08-07] MEDS: ROSUVASTATIN CA 10 MG TABLET (FP) PO SCH (09:14)
[2020-08-07] MEDS: SODIUM CHLORIDE NASAL SPRAY 44 ML BOTTLE NS SCH ×2 (09:16→22:14)
[2020-08-07] MEDS ORDERED: INSULIN (NOVOLOG) ASPART 100 UNITS/ML 10ML VIAL ONE (17:44)
[2020-08-08] MEDS: INSULIN SLIDING SCALE (NOVOLOG) 1 VIAL SQ SCH ×4 (06:46→21:13)
[2020-08-08] MEDS: POLYETHYLENE GLYCOL 3350 119 GM BTL PO SCH ×3 (06:46→21:13)
[2020-08-08] MEDS ORDERED: PT OWN MED DRAWER 7, Y5N ONE (10:00)
[2020-08-08] MEDS: metoPROLOL SUCCINATE 25 MG TAB.SR.24H (FP) PO SCH (10:06)
[2020-08-08] MEDS: SODIUM CHLORIDE NASAL SPRAY 44 ML BOTTLE NS SCH ×2 (10:06→21:13)
[2020-08-08] MEDS: ROSUVASTATIN CA 10 MG TABLET (FP) PO SCH (10:06)
[2020-08-08] MEDS: PANTOPRAZOLE 40 MG TABLET PO SCH (10:06)
[2020-08-08] MEDS ORDERED: INSULIN (NOVOLOG) ASPART 100 UNITS/ML 10ML VIAL ONE (20:56)
[2020-08-09] MEDS: POLYETHYLENE GLYCOL 3350 119 GM BTL PO SCH ×3 (06:04→21:41)
[2020-08-09] MEDS: INSULIN SLIDING SCALE (NOVOLOG) 1 VIAL SQ SCH ×4 (06:04→21:40)
[2020-08-09] MEDS: ROSUVASTATIN CA 10 MG TABLET (FP) PO SCH (10:50)
[2020-08-09] MEDS: metoPROLOL SUCCINATE 25 MG TAB.SR.24H (FP) PO SCH (10:50)
[2020-08-09] MEDS: PANTOPRAZOLE 40 MG TABLET PO SCH (10:50)
[2020-08-09] MEDS: SODIUM CHLORIDE NASAL SPRAY 44 ML BOTTLE NS SCH ×2 (10:56→21:42)
[2020-08-09] MEDS ORDERED: INSULIN (NOVOLOG) ASPART 100 UNITS/ML 10ML VIAL ONE (11:40)
[2020-08-09] MEDS ORDERED: PT OWN MED DRAWER 7, Y5N ONE (12:44)
[2020-08-09] MEDS ORDERED: SODIUM PHOSPHATE/NA BIPHOS 133 ML ENEMA RC ONE ×2 (22:00→22:05)
[2020-08-09] MEDS ORDERED: SODIUM CHLORIDE 1,000 ML IV SCH (23:00)
[2020-08-10] MEDS: INSULIN SLIDING SCALE (NOVOLOG) 1 VIAL SQ SCH ×4 (06:12→21:53)
[2020-08-10] MEDS: POLYETHYLENE GLYCOL 3350 119 GM BTL PO SCH ×2 (06:12→13:22)
[2020-08-10] MEDS ORDERED: PT OWN MED DRAWER 7, Y5N ONE ×2 (08:56→21:05)
[2020-08-10] MEDS: ALVIMOPAN 12 MG CAP PO ONE ×2 (09:01→11:33)
[2020-08-10] MEDS: metoPROLOL SUCCINATE 25 MG TAB.SR.24H (FP) PO SCH (09:01)
[2020-08-10] MEDS: ROSUVASTATIN CA 10 MG TABLET (FP) PO SCH ×2 (09:01→21:42)
[2020-08-10] MEDS: PANTOPRAZOLE 40 MG TABLET PO SCH (09:01)
[2020-08-10] MEDS: SODIUM CHLORIDE NASAL SPRAY 44 ML BOTTLE NS SCH ×3 (09:02→23:55)
[2020-08-10 09:30] LABS: HEMATOCRIT 27.2 % (32.4-45.2); HEMOGLOBIN 8.9 GM/dL (10.7-15.3); MCH 25.1 pg (25.7-33.7); MCHC 32.5 g/dl (32.0-36.0); MEAN CELL VOLUME 77.3 fl (80-96); PLATELET COUNT 326 K/MM3 (134-434); RBC 3.52 M/mm3 (3.60-5.2); RDW 16.6 % (11.6-15.6); WHITE BLOOD COUNT 7.6 K/mm3 (4.0-10.0)
[2020-08-10 09:37] LABS: INR 1.01 (0.83-1.09); PROTHROMBIN TIME (PATIENT) 12.4 SEC (9.7-13.0)
[2020-08-10] MEDS ORDERED: ERTAPENEM SODIUM 1 GM in SODIUM CHLORIDE 50 ML IVPB ONE (10:00)
[2020-08-10 10:06] LABS: CREATININE 0.8 mg/dL (0.55-1.3)
[2020-08-10 10:08] LABS: BILIRUBIN,TOTAL 0.4 mg/dL (0.2-1); TOT PROT 6.8 g/dl (6.4-8.2)
[2020-08-10 10:11] LABS: BLOOD UREA NITROGEN 10.6 mg/dL (7-18); CALCIUM 8.8 mg/dL (8.5-10.1)
[2020-08-10] MEDS ORDERED: ALVIMOPAN 12 MG CAP PO ONE (12:00)
[2020-08-10] MEDS ORDERED: MIDAZOLAM HCL 2 MG/2 ML SINGLE DOSE VIAL ONE ×3 (12:11→12:13)
[2020-08-10] MEDS ORDERED: BUPIVACAINE LIPOSOME/PF (EXPAREL) 266 MG/20 ML VIAL ONE (12:11)
[2020-08-10] MEDS ORDERED: LIDOCAINE HCL/PF 2% SDV 5ML VIAL ONE (12:13)
[2020-08-10] MEDS ORDERED: ETOMIDATE 20 MG/10 ML AMPUL IVPUSH ONE (12:13)
[2020-08-10] MEDS ORDERED: ROCURONIUM BROMIDE 50 MG/5 ML SYRINGE ONE ×2 (12:13→14:34)
[2020-08-10] MEDS ORDERED: NOREPINEPHRINE BITARTRATE 4 MG/4 ML ML IV ONE (13:16)
[2020-08-10] MEDS ORDERED: ceFAZolin SODIUM 1 GM VIAL IVPB ONE (13:48)
[2020-08-10] MEDS ORDERED: NALOXONE HCL 0.4 MG/ML VIAL ONE (13:51)
[2020-08-10] MEDS ORDERED: INDOCYANINE GREEN 25 MG/10 ML VIAL IVPUSH ONE (15:00)
[2020-08-10] MEDS ORDERED: SODIUM CHLORIDE 0.9% P/F 10 ML VIAL IJ ONE (15:01)
[2020-08-10] MEDS ORDERED: ACETAMINOPHEN 1000 MG/100 ML VIAL (NON FORMULARY) IVPB PRN (16:40)
[2020-08-10] MEDS: ACETAMINOPHEN 1000 MG/100 ML VIAL (NON FORMULARY) IVPB PRN (17:10)
[2020-08-10] MEDS ORDERED: NEOSTIGMINE METHYLSULFATE 0.5 MG/ML - 10 ML MDV ONE (17:15)
[2020-08-10] MEDS ORDERED: GLYCOPYRROLATE 0.2 MG/1 ML VIAL ONE (17:15)
[2020-08-10] MEDS ORDERED: ONDANSETRON 4 MG/2 ML VIAL ONE (17:39)
[2020-08-10] MEDS ORDERED: HYDROmorphone HCl 2 MG/ML VIAL IVPUSH PRN (17:41)
[2020-08-10] MEDS ORDERED: ONDANSETRON 4 MG/2 ML VIAL IVPUSH PRN ×2 (17:41→18:18)
[2020-08-10] MEDS ORDERED: LACTATED RINGERS SOLUTION 1,000 ML IV SCH (17:45)
[2020-08-10] MEDS ORDERED: ACETAMINOPHEN INJECTION 100 ML IVPB ONE (19:05)
[2020-08-10] MEDS: SODIUM CHLORIDE 1,000 ML IV SCH ×2 (20:20→21:40)
[2020-08-10] MEDS ORDERED: CEFAZOLIN 2 GM/D5W 2 GM/50 ML ML IVPB SCH (22:00)
[2020-08-10] MEDS ORDERED: ALVIMOPAN 12 MG CAP PO SCH (22:00)
[2020-08-10] MEDS: ALVIMOPAN 12 MG CAP PO SCH (23:40)
[2020-08-10] MEDS: CIPROFLOXACIN 200 MG/D5W 100 ML IVPB SCH (23:43)
[2020-08-11] MEDS: HEPARIN NA (PORCINE) 5,000 UNITS/ML 1ML VIAL SQ SCH ×3 (06:36→21:32)
[2020-08-11] MEDS ORDERED: INSULIN (NOVOLOG) ASPART 100 UNITS/ML 10ML VIAL ONE (06:38)
[2020-08-11] MEDS: INSULIN SLIDING SCALE (NOVOLOG) 1 VIAL SQ SCH ×4 (06:43→21:33)
[2020-08-11] MEDS: ACETAMINOPHEN 1000 MG/100 ML VIAL (NON FORMULARY) IVPB PRN ×3 (07:22→21:45)
[2020-08-11 08:29] LABS: HEMATOCRIT 27.2 % (32.4-45.2); HEMOGLOBIN 8.4 GM/dL (10.7-15.3); MCH 24.4 pg (25.7-33.7); MEAN CELL VOLUME 78.9 fl (80-96); MEAN PLT VOLUME 9.2 fl (7.5-11.1); PLATELET COUNT 288 K/MM3 (134-434); RBC 3.44 M/mm3 (3.60-5.2); RDW 17.3 % (11.6-15.6); WHITE BLOOD COUNT 11.9 K/mm3 (4.0-10.0)
[2020-08-11 09:08] LABS: ALBUMIN 2.6 g/dl (3.4-5.0); CALCIUM 8.1 mg/dL (8.5-10.1)
[2020-08-11 09:10] LABS: BLOOD UREA NITROGEN 10.2 mg/dL (7-18); MAGNESIUM 2.1 mg/dL (1.8-2.4)
[2020-08-11 09:12] LABS: CREATININE 0.8 mg/dL (0.55-1.3)
[2020-08-11 09:14] LABS: BILIRUBIN,TOTAL 0.6 mg/dL (0.2-1); TOT PROT 5.8 g/dl (6.4-8.2)
[2020-08-11] MEDS: SODIUM CHLORIDE 1,000 ML IV SCH ×3 (09:49→21:31)
[2020-08-11] MEDS ORDERED: PANTOPRAZOLE SODIUM 40 MG VIAL IVPUSH SCH (10:00)
[2020-08-11] MEDS ORDERED: HEPARIN NA (PORCINE) 5,000 UNITS/ML 1ML VIAL SQ SCH (10:00)
[2020-08-11] MEDS ORDERED: PT OWN MED DRAWER 7, Y5N ONE ×2 (10:03→10:40)
[2020-08-11] MEDS: metoPROLOL SUCCINATE 25 MG TAB.SR.24H (FP) PO SCH (10:05)
[2020-08-11] MEDS: PANTOPRAZOLE SODIUM 40 MG VIAL IVPUSH SCH (10:05)
[2020-08-11] MEDS: CIPROFLOXACIN 200 MG/D5W 100 ML IVPB SCH (10:06)
[2020-08-11] MEDS: ALVIMOPAN 12 MG CAP PO SCH ×2 (10:06→21:32)
[2020-08-11] MEDS: SODIUM CHLORIDE NASAL SPRAY 44 ML BOTTLE NS SCH ×2 (10:10→21:33)
[2020-08-11] MEDS ORDERED: FERRIC CARBOXYMALTOSE 750 MG in SODIUM CHLORIDE 250 ML IVPB ONE (18:00)
[2020-08-11] MEDS: ROSUVASTATIN CA 10 MG TABLET (FP) PO SCH (21:32)
[2020-08-12] MEDS: HEPARIN NA (PORCINE) 5,000 UNITS/ML 1ML VIAL SQ SCH ×3 (06:26→21:37)
[2020-08-12] MEDS: INSULIN SLIDING SCALE (NOVOLOG) 1 VIAL SQ SCH ×4 (06:26→21:38)
[2020-08-12] MEDS: ACETAMINOPHEN 1000 MG/100 ML VIAL (NON FORMULARY) IVPB PRN (07:50)
[2020-08-12 08:11] LABS: HEMATOCRIT 25.8 % (32.4-45.2); HEMOGLOBIN 8.2 GM/dL (10.7-15.3); MCHC 31.7 g/dl (32.0-36.0); MEAN PLT VOLUME 8.8 fl (7.5-11.1); PLATELET COUNT 267 K/MM3 (134-434); RBC 3.27 M/mm3 (3.60-5.2); RDW 17.8 % (11.6-15.6); WHITE BLOOD COUNT 9.8 K/mm3 (4.0-10.0)
[2020-08-12 08:47] LABS: MAGNESIUM 1.9 mg/dL (1.8-2.4)
[2020-08-12 08:50] LABS: CREATININE 0.7 mg/dL (0.55-1.3)
[2020-08-12] MEDS ORDERED: PT OWN MED DRAWER 7, Y5N ONE ×3 (10:03→20:32)
[2020-08-12] MEDS: metoPROLOL SUCCINATE 25 MG TAB.SR.24H (FP) PO SCH (10:21)
[2020-08-12] MEDS: ALVIMOPAN 12 MG CAP PO SCH ×2 (10:21→21:37)
[2020-08-12] MEDS: PANTOPRAZOLE SODIUM 40 MG VIAL IVPUSH SCH (10:21)
[2020-08-12] MEDS: SODIUM CHLORIDE NASAL SPRAY 44 ML BOTTLE NS SCH (10:24)
[2020-08-12] MEDS: SODIUM CHLORIDE 1,000 ML IV SCH (17:43)
[2020-08-12] MEDS: traMADol HCL 50 MG TABLET PO PRN (20:36)
[2020-08-12] MEDS: ROSUVASTATIN CA 10 MG TABLET (FP) PO SCH (21:37)
[2020-08-13] MEDS: SODIUM CHLORIDE NASAL SPRAY 44 ML BOTTLE NS SCH ×3 (00:06→21:06)
[2020-08-13] MEDS: HEPARIN NA (PORCINE) 5,000 UNITS/ML 1ML VIAL SQ SCH ×3 (06:06→21:04)
[2020-08-13] MEDS: INSULIN SLIDING SCALE (NOVOLOG) 1 VIAL SQ SCH ×4 (06:13→21:02)
[2020-08-13] MEDS: SODIUM CHLORIDE 1,000 ML IV SCH (06:13)
[2020-08-13] MEDS: metFORMIN HCL 500 MG TABLET (FP) PO SCH ×2 (06:15→16:44)
[2020-08-13] MEDS ORDERED: PT OWN MED DRAWER 7, Y5N ONE ×3 (08:59→20:36)
[2020-08-13] MEDS: PANTOPRAZOLE SODIUM 40 MG VIAL IVPUSH SCH (09:03)
[2020-08-13] MEDS: ALVIMOPAN 12 MG CAP PO SCH ×2 (09:03→21:04)
[2020-08-13] MEDS: metoPROLOL SUCCINATE 25 MG TAB.SR.24H (FP) PO SCH (09:03)
[2020-08-13] MEDS: traMADol HCL 50 MG TABLET PO PRN (10:45)
[2020-08-13] MEDS: ROSUVASTATIN CA 10 MG TABLET (FP) PO SCH (21:03)
[2020-08-14] MEDS: HEPARIN NA (PORCINE) 5,000 UNITS/ML 1ML VIAL SQ SCH ×3 (06:09→21:09)
[2020-08-14] MEDS: INSULIN SLIDING SCALE (NOVOLOG) 1 VIAL SQ SCH ×4 (06:10→21:10)
[2020-08-14] MEDS: metFORMIN HCL 500 MG TABLET (FP) PO SCH ×2 (06:10→15:54)
[2020-08-14 08:08] LABS: BASO % 0.6 % (0-2.0); EOS % 1.9 % (0-4.5); HEMATOCRIT 24.5 % (32.4-45.2); HEMOGLOBIN 7.9 GM/dL (10.7-15.3); LYMPH % 20.4 % (8-40); MCH 25.1 pg (25.7-33.7); MCHC 32.4 g/dl (32.0-36.0); MEAN CELL VOLUME 77.5 fl (80-96); MONO % 7.8 % (3.8-10.2); NEUT % 69.3 % (42.8-82.8); PLATELET COUNT 274 K/MM3 (134-434); RBC 3.16 M/mm3 (3.60-5.2); RDW 20.4 % (11.6-15.6); WHITE BLOOD COUNT 6.7 K/mm3 (4.0-10.0)
[2020-08-14 08:22] LABS: ALBUMIN 2.1 g/dl (3.4-5.0); BLOOD UREA NITROGEN 6.4 mg/dL (7-18); CALCIUM 7.5 mg/dL (8.5-10.1)
[2020-08-14 08:25] LABS: CREATININE 0.7 mg/dL (0.55-1.3)
[2020-08-14 08:26] LABS: BILIRUBIN,TOTAL 0.3 mg/dL (0.2-1); TOT PROT 5.4 g/dl (6.4-8.2)
[2020-08-14] MEDS ORDERED: PT OWN MED DRAWER 7, Y5N ONE ×2 (10:24→10:54)
[2020-08-14 10:30] LABS: HEMATOCRIT 28.3 % (32.4-45.2); MCH 24.8 pg (25.7-33.7); MCHC 31.7 g/dl (32.0-36.0); MEAN CELL VOLUME 78.5 fl (80-96); MEAN PLT VOLUME 8.5 fl (7.5-11.1); PLATELET COUNT 297 K/MM3 (134-434); RBC 3.61 M/mm3 (3.60-5.2); RDW 21.5 % (11.6-15.6); WHITE BLOOD COUNT 6.7 K/mm3 (4.0-10.0)
[2020-08-14] MEDS: traMADol HCL 50 MG TABLET PO PRN ×2 (10:39→17:17)
[2020-08-14] MEDS: metoPROLOL SUCCINATE 25 MG TAB.SR.24H (FP) PO SCH (10:40)
[2020-08-14] MEDS: PANTOPRAZOLE 40 MG TABLET PO SCH (10:40)
[2020-08-14] MEDS: ALVIMOPAN 12 MG CAP PO SCH ×2 (10:41→21:09)
[2020-08-14] MEDS: SODIUM CHLORIDE NASAL SPRAY 44 ML BOTTLE NS SCH ×2 (10:41→21:09)
[2020-08-14] MEDS ORDERED: POTASSIUM CHLORIDE TABS 10 MEQ TABLET.ER (FP) PO ONE (14:37)
[2020-08-14] MEDS ORDERED: INSULIN (NOVOLOG) ASPART 100 UNITS/ML 10ML VIAL ONE (20:38)
[2020-08-14] MEDS: ROSUVASTATIN CA 10 MG TABLET (FP) PO SCH (21:09)
[2020-08-15] MEDS: HEPARIN NA (PORCINE) 5,000 UNITS/ML 1ML VIAL SQ SCH ×2 (06:03→13:11)
[2020-08-15] MEDS: INSULIN SLIDING SCALE (NOVOLOG) 1 VIAL SQ SCH ×3 (06:04→16:21)
[2020-08-15] MEDS: metFORMIN HCL 500 MG TABLET (FP) PO SCH ×2 (06:04→17:45)
[2020-08-15] MEDS: SODIUM CHLORIDE NASAL SPRAY 44 ML BOTTLE NS SCH (09:06)
[2020-08-15] MEDS: metoPROLOL SUCCINATE 25 MG TAB.SR.24H (FP) PO SCH (09:06)
[2020-08-15] MEDS: PANTOPRAZOLE 40 MG TABLET PO SCH (09:06)
[2020-08-15] MEDS: ALVIMOPAN 12 MG CAP PO SCH (09:09)
[2020-08-15] MEDS ORDERED: PT OWN MED DRAWER 7, Y5N ONE (09:09)
[2020-08-15] MEDS ORDERED: INSULIN (NOVOLOG) ASPART 100 UNITS/ML 10ML VIAL ONE (12:01)
[2020-08-15] MEDS: traMADol HCL 50 MG TABLET PO PRN (13:15)
[2020-08-15 16:22] VITALS: BP 140/70; PULSE 89; TEMP 99.2
== END 2020-08-15 21:46 | disposition home health service (06) | DRG 330 ==
LOC: JER 09:17 → JERBED 14:11 → J8W 21:35
PROVIDERS: ADMIT Internal Medicine; ATTEND Family Medicine
PROC: 0DB68ZX Excision of Stomach, Via Natural or Artificial Opening Endoscopic, Diagnostic (ICD-10-PCS; 2020-08-05)
PROC: 0DBK8ZX Excision of Ascending Colon, Via Natural or Artificial Opening Endoscopic, Diagnostic (ICD-10-PCS; 2020-08-05)
PROC: 0DBH8ZX Excision of Cecum, Via Natural or Artificial Opening Endoscopic, Diagnostic (ICD-10-PCS; 2020-08-05)
PROC: 0DBH4ZZ Excision of Cecum, Percutaneous Endoscopic Approach (ICD-10-PCS; principal; 2020-08-10 13:00)
DX: C18.0 Malignant neoplasm of cecum (principal); I47.1 Supraventricular tachycardia; D50.9 Iron deficiency anemia, unspecified; R00.2 Palpitations; I10 Essential (primary) hypertension; E78.5 Hyperlipidemia, unspecified; D72.829 Elevated white blood cell count, unspecified; I35.0 Nonrheumatic aortic (valve) stenosis; R09.02 Hypoxemia; R50.9 Fever, unspecified; K31.7 Polyp of stomach and duodenum; K63.5 Polyp of colon; K57.90 Diverticulosis of intestine, part unspecified, without perforation or abscess without bleeding; K29.50 Unspecified chronic gastritis without bleeding; K59.00 Constipation, unspecified; K21.9 Gastro-esophageal reflux disease without esophagitis; E66.9 Obesity, unspecified; Z68.38 Body mass index [BMI] 38.0-38.9, adult; K04.7 Periapical abscess without sinus; R79.89 Other specified abnormal findings of blood chemistry; E11.65 Type 2 diabetes mellitus with hyperglycemia; E11.40 Type 2 diabetes mellitus with diabetic neuropathy, unspecified
CPT/HCPCS: 36415; 71045-TC-FY; 71275-TC; 74177-TC; 80048; 80053; 80061; 81003; 82248; 82272; 82378; 82550; 82607; 82728; 82746; 82784; 82803; 82962; 83516; 83540; 83550; 83605; 83615; 83721; 83735; 83880; 84443; 84484; 85025; 85027; 85045; 85379; 85610; 85730; 86140; 86850; 86900; 86901; 87040; 87086; 87804; 88305-TC; 88309-TC; 93005; 93010; 93225; 93226; 93306-TC; 93970-TC; 94010; 94760; 97116-GP; 97161-GP; 99285-25; C9803; J0131; J1439; J1644; J1756; Q9967; U0003; U0005

== ENCOUNTER 2020-09-20 04:53 | Day surgery (SDC) | payer OTHER, MEDICARE ==
[2020-09-19 12:29] VITALS: BMI 37.9
[2020-09-20 08:52] LABS: BASO % 0.6 % (0-2.0); EOS % 2.8 % (0-4.5); HEMATOCRIT 36.1 % (32.4-45.2); HEMOGLOBIN 11.9 GM/dL (10.7-15.3); MCH 26.6 pg (25.7-33.7); MCHC 32.9 g/dl (32.0-36.0); MEAN CELL VOLUME 80.8 fl (80-96); MONO % 7.6 % (3.8-10.2); PLATELET COUNT 242 K/MM3 (134-434); RBC 4.46 M/mm3 (3.60-5.2); RDW 21.9 % (11.6-15.6); WHITE BLOOD COUNT 6.7 K/mm3 (4.0-10.0)
[2020-09-20 08:54] LABS: PROTHROMBIN TIME (PATIENT) 12.1 SEC (9.7-13.0)
[2020-09-20] MEDS ORDERED: MIDAZOLAM HCL 2 MG/2 ML SINGLE DOSE VIAL ONE (10:46)
[2020-09-20] MEDS ORDERED: MIDAZOLAM HCL 2 MG/2 ML SINGLE DOSE VIAL IVPB ONE ×2 (10:55→11:15)
[2020-09-20 13:13] LABS: ANISOCYTOSIS 1+; MACROCYTOSIS 0; PLATELET ESTIMATE NORMAL
[2020-09-20 14:04] VITALS: TEMP 97.9
[2020-09-20 14:10] VITALS: BP 136/63; PULSE 82
== END 2020-09-20 13:30 | disposition home or self-care (01) ==
LOC: JRADIR 04:53
PROVIDERS: ATTEND Internal Medicine Hematology & Oncology
PROC: 0JH63WZ Insertion of Totally Implantable Vascular Access Device into Chest Subcutaneous Tissue and Fascia, Percutaneous Approach (ICD-10-PCS; principal; 2020-09-20)
PROC: 02HV33Z Insertion of Infusion Device into Superior Vena Cava, Percutaneous Approach (ICD-10-PCS; 2020-09-20)
DX: C18.9 Malignant neoplasm of colon, unspecified (principal)
CPT/HCPCS: 36561; C1751; 36415; 77001-TC-FY; 82962; 85025; 85610; C1788

== ENCOUNTER 2020-09-21 07:15 | Day surgery (SDC) | payer OTHER, MEDICARE ==
[2020-09-21] MEDS ORDERED: SODIUM CHLORIDE 250 ML IV ONE (09:00)
[2020-09-21 09:09] LABS: BASO % 0.8 % (0-2.0); EOS % 1.4 % (0-4.5); HEMATOCRIT 34.8 % (32.4-45.2); HEMOGLOBIN 11.5 GM/dL (10.7-15.3); LYMPH % 33.6 % (8-40); MCH 26.7 pg (25.7-33.7); MCHC 33.1 g/dl (32.0-36.0); MEAN CELL VOLUME 80.5 fl (80-96); NEUT % 57.2 % (42.8-82.8); PLATELET COUNT 255 K/MM3 (134-434); RBC 4.32 M/mm3 (3.60-5.2); RDW 22.1 % (11.6-15.6); WHITE BLOOD COUNT 7.3 K/mm3 (4.0-10.0)
[2020-09-21] MEDS ORDERED: DEXAMETHASONE SODIUM PHOSPHATE 10 MG in SODIUM CHLORIDE 50 ML IVPB ONE (09:30)
[2020-09-21] MEDS ORDERED: PALONOSETRON HCL 0.25 MG/5 ML VIAL IVPUSH ONE (09:30)
[2020-09-21 09:32] LABS: CALCIUM 9.1 mg/dL (8.5-10.1)
[2020-09-21 09:33] LABS: ALBUMIN 3.3 g/dl (3.4-5.0); BLOOD UREA NITROGEN 17.6 mg/dL (7-18)
[2020-09-21 09:38] LABS: BILIRUBIN,TOTAL 0.8 mg/dL (0.2-1); TOT PROT 7.3 g/dl (6.4-8.2)
[2020-09-21] MEDS ORDERED: DEXTROSE 5% IV ONE (10:00)
[2020-09-21] MEDS ORDERED: DEXTROSE 5% IVPB ONE ×2 (10:00→11:00)
[2020-09-21] MEDS ORDERED: OXALIPLATIN IV ONE (10:00)
[2020-09-21] MEDS ORDERED: WATER IVPB ONE ×2 (10:00→11:00)
[2020-09-21] MEDS ORDERED: LEUCOVORIN IVPB ONE ×2 (10:00→11:00)
[2020-09-21] MEDS ORDERED: WATER IV ONE (10:00)
[2020-09-21] MEDS ORDERED: SODIUM CHLORIDE 500 ML IV STA (10:01)
[2020-09-21] MEDS ORDERED: OXALIPLATIN 175 MG in DEXTROSE 5%-WATER - 500 ML IV ONE (11:00)
[2020-09-21] MEDS ORDERED: FLUOROURACIL 500 MG/10 ML VIAL IVPUSH ONE ×2 (12:00→13:00)
[2020-09-21] MEDS ORDERED: FLUOROURACIL CP ONE ×2 (12:15→13:15)
[2020-09-21] MEDS ORDERED: SODIUM CHLORIDE CP ONE ×2 (12:15→13:15)
[2020-09-21 17:58] VITALS: TEMP 98.6
[2020-09-21 18:26] VITALS: BP 148/75; PULSE 80
== END 2020-09-21 16:00 | disposition home or self-care (01) ==
LOC: JONCCHEMO 07:15
PROVIDERS: ATTEND Internal Medicine Hematology & Oncology
DX: Z51.11 Encounter for antineoplastic chemotherapy (principal); C18.8 Malignant neoplasm of overlapping sites of colon
CPT/HCPCS: 36415; 80053; 85025; 96360; 96361; 96366; 96367; 96375; 96413; G0498; J2469; J9190; J9263

== ENCOUNTER 2020-10-05 06:58 | Day surgery (SDC) | payer OTHER, MEDICARE ==
[2020-10-05 08:49] LABS: BASO % 0.9 % (0-2.0); EOS % 3.8 % (0-4.5); HEMATOCRIT 33.5 % (32.4-45.2); HEMOGLOBIN 11.1 GM/dL (10.7-15.3); LYMPH % 44.5 % (8-40); MCH 26.4 pg (25.7-33.7); MEAN CELL VOLUME 80.1 fl (80-96); MEAN PLT VOLUME 8.1 fl (7.5-11.1); MONO % 12.6 % (3.8-10.2); NEUT % 38.2 % (42.8-82.8); PLATELET COUNT 247 10^3/uL (134-434); RBC 4.18 M/mm3 (3.60-5.2); RDW 20.1 % (11.6-15.6); WHITE BLOOD COUNT 3.9 K/mm3 (4.0-10.0)
[2020-10-05 09:12] LABS: CALCIUM 8.9 mg/dL (8.5-10.1)
[2020-10-05 09:13] LABS: BLOOD UREA NITROGEN 15.6 mg/dL (7-18)
[2020-10-05 09:17] LABS: TOT PROT 6.6 g/dl (6.4-8.2)
[2020-10-05 09:21] LABS: BILIRUBIN,TOTAL 0.6 mg/dL (0.2-1)
[2020-10-05] MEDS ORDERED: SODIUM CHLORIDE 250 ML IV ONE (11:30)
[2020-10-05] MEDS ORDERED: DEXAMETHASONE SODIUM PHOSPHATE 10 MG in SODIUM CHLORIDE 50 ML IVPB ONE (12:00)
[2020-10-05] MEDS ORDERED: PALONOSETRON HCL 0.25 MG/5 ML VIAL IVPUSH ONE (12:00)
[2020-10-05] MEDS ORDERED: DEXTROSE 5% IVPB ONE (12:30)
[2020-10-05] MEDS ORDERED: LEUCOVORIN IVPB ONE (12:30)
[2020-10-05] MEDS ORDERED: OXALIPLATIN 175 MG in DEXTROSE 5%-WATER - 500 ML IV ONE (12:30)
[2020-10-05] MEDS ORDERED: WATER IVPB ONE (12:30)
[2020-10-05] MEDS ORDERED: SODIUM CHLORIDE CP ONE (14:00)
[2020-10-05] MEDS ORDERED: FLUOROURACIL CP ONE (14:00)
[2020-10-05 18:19] VITALS: BP 148/72; PULSE 80; TEMP 98.5
== END 2020-10-05 15:20 | disposition home or self-care (01) ==
LOC: JONCCHEMO 06:58
PROVIDERS: ATTEND Internal Medicine Hematology & Oncology
PROC: B518YZA Fluoroscopy of Superior Vena Cava using Other Contrast, Guidance (ICD-10-PCS; principal; 2020-10-05)
PROC: 3E04305 Introduction of Other Antineoplastic into Central Vein, Percutaneous Approach (ICD-10-PCS; 2020-10-05)
DX: Z51.11 Encounter for antineoplastic chemotherapy (principal); C18.8 Malignant neoplasm of overlapping sites of colon
CPT/HCPCS: 36010; 36415; 36598; 75827-TC-FY; 80053; 85025; 96366; 96367; 96375; 96413; 96415; G0498; J2469; J9263

== ENCOUNTER 2020-10-10 07:14 | Day surgery (SDC) | payer OTHER, MEDICARE ==
[2020-10-10] MEDS ORDERED: TBO-FILGRASTIM 480 MCG/0.8 ML DISP.SYRIN SQ ONE (10:00)
[2020-10-10 16:17] VITALS: BP 128/67; PULSE 70; TEMP 98.3
== END 2020-10-10 09:25 | disposition home or self-care (01) ==
LOC: EDSTATUS 07:14 → JONCCHEMO 07:14
PROVIDERS: ATTEND Internal Medicine Hematology & Oncology
PROC: 3E013GC Introduction of Other Therapeutic Substance into Subcutaneous Tissue, Percutaneous Approach (ICD-10-PCS; principal; 2020-10-10)
DX: C18.8 Malignant neoplasm of overlapping sites of colon (principal); Z76.89 Persons encountering health services in other specified circumstances
CPT/HCPCS: 96372; J1447

== ENCOUNTER 2020-10-17 22:44 | Observation (INO) | payer OTHER, MEDICARE ==
[2020-10-17 22:51] VITALS: BMI 37.4
[2020-10-17 23:55] LABS: BASO % 1.3 % (0-2.0); EOS % 1.7 % (0-4.5); HEMATOCRIT 33.3 % (32.4-45.2); HEMOGLOBIN 10.9 GM/dL (10.7-15.3); LYMPH % 38.3 % (8-40); MCH 26.7 pg (25.7-33.7); MCHC 32.7 g/dl (32.0-36.0); MEAN CELL VOLUME 81.5 fl (80-96); MEAN PLT VOLUME 8.7 fl (7.5-11.1); MONO % 16.5 % (3.8-10.2); NEUT % 42.2 % (42.8-82.8); PLATELET COUNT 192 10^3/uL (134-434); RBC 4.08 M/mm3 (3.60-5.2); WHITE BLOOD COUNT 4.2 K/mm3 (4.0-10.0)
[2020-10-18 00:01] LABS: INR 0.9 (0.83-1.09); PROTHROMBIN TIME (PATIENT) 11.1 SEC (9.7-13.0)
[2020-10-18 00:22] LABS: CHLORIDE 107 mmol/L (98-107); SODIUM 142 mmol/L (136-145)
[2020-10-18 00:24] LABS: ANION GAP 7 MMOL/L (8-16); CALCIUM 8.6 mg/dL (8.5-10.1); CO2 28 mmol/L (21-32)
[2020-10-18 00:25] LABS: GLUCOSE,RANDOM 201 mg/dL (74-106)
[2020-10-18 00:27] LABS: SGPT/ALT 34 U/L (13-61)
[2020-10-18 00:28] LABS: CREATININE 1.1 mg/dL (0.55-1.3); SGOT/AST 25 U/L (15-37)
[2020-10-18 00:29] LABS: BILIRUBIN,TOTAL 0.3 mg/dL (0.2-1); TOT PROT 6.7 g/dl (6.4-8.2)
[2020-10-18 00:30] LABS: ALK PHOS 103 U/L (45-117)
[2020-10-18] MEDS ORDERED: ASPIRIN 81 MG CHEWABLE TABLETS PO ONE (02:01)
[2020-10-18] MEDS ORDERED: ASPIRIN 81 MG CHEWABLE TABLETS ONE (02:07)
[2020-10-18 06:00] LABS: BASO % 0.7 % (0-2.0); HEMATOCRIT 32.1 % (32.4-45.2); HEMOGLOBIN 10.3 GM/dL (10.7-15.3); LYMPH % 42.3 % (8-40); MCH 26.1 pg (25.7-33.7); MCHC 32.1 g/dl (32.0-36.0); MEAN CELL VOLUME 81.3 fl (80-96); MEAN PLT VOLUME 8.7 fl (7.5-11.1); MONO % 15.1 % (3.8-10.2); NEUT % 40.9 % (42.8-82.8); PLATELET COUNT 188 10^3/uL (134-434); RBC 3.95 M/mm3 (3.60-5.2); RDW 20.2 % (11.6-15.6); WHITE BLOOD COUNT 4.7 K/mm3 (4.0-10.0)
[2020-10-18] MEDS ORDERED: ONDANSETRON 4 MG/2 ML VIAL IVPUSH PRN (06:23)
[2020-10-18 06:38] LABS: ALBUMIN 2.9 g/dl (3.4-5.0); BILIRUBIN,TOTAL 0.4 mg/dL (0.2-1); BLOOD UREA NITROGEN 15.8 mg/dL (7-18); CALCIUM 8.6 mg/dL (8.5-10.1); CREATININE 0.8 mg/dL (0.55-1.3); PHOSPHOROUS 3.1 mg/dL (2.5-4.9); TOT PROT 6.5 g/dl (6.4-8.2)
[2020-10-18] MEDS ORDERED: PANTOPRAZOLE 40 MG TABLET ONE (09:34)
[2020-10-18] MEDS ORDERED: metoPROLOL SUCCINATE 25 MG TAB.SR.24H (FP) ONE (09:35)
[2020-10-18] MEDS ORDERED: LOSARTAN POTASSIUM 25 MG TABLET PO SCH ×2 (10:00→12:00)
[2020-10-18] MEDS ORDERED: metoPROLOL SUCCINATE 25 MG TAB.SR.24H (FP) PO SCH (10:00)
[2020-10-18] MEDS ORDERED: PANTOPRAZOLE 40 MG TABLET PO SCH (10:00)
[2020-10-18 15:04] VITALS: TEMP 98.2
[2020-10-18 19:28] VITALS: BP 160/77; PULSE 76
[2020-10-18] MEDS ORDERED: ROSUVASTATIN CA 10 MG TABLET (FP) PO SCH (22:00)
[2020-10-19] MEDS ORDERED: ASPIRIN 81 MG CHEWABLE TABLETS PO SCH (10:00)
== END 2020-10-18 20:47 | disposition home or self-care (01) ==
LOC: JER 22:44 → JERBED 10-18 02:01
PROVIDERS: ADMIT Internal Medicine; ATTEND Family Medicine
DX: R07.9 Chest pain, unspecified (principal); C18.0 Malignant neoplasm of cecum; K21.9 Gastro-esophageal reflux disease without esophagitis; K59.00 Constipation, unspecified; D50.9 Iron deficiency anemia, unspecified; E11.9 Type 2 diabetes mellitus without complications; Z79.4 Long term (current) use of insulin; I35.0 Nonrheumatic aortic (valve) stenosis; Z82.49 Family history of ischemic heart disease and other diseases of the circulatory system; Z87.891 Personal history of nicotine dependence
CPT/HCPCS: 36415; 71275-TC; 80053; 80061; 82550; 83721; 84100; 84443; 84484; 85025; 85610; 93005; 93010; 99285-25; C9803; G0378; Q9967; U0003; U0005

== ENCOUNTER 2020-10-26 05:07 | Day surgery (SDC) | payer OTHER, MEDICARE ==
[2020-10-19 09:52] LABS: BASO % 1.3 % (0-2.0); HEMATOCRIT 34.2 % (32.4-45.2); HEMOGLOBIN 11.2 GM/dL (10.7-15.3); LYMPH % 42.3 % (8-40); MCH 26.4 pg (25.7-33.7); MCHC 32.8 g/dl (32.0-36.0); MEAN CELL VOLUME 80.5 fl (80-96); MEAN PLT VOLUME 9.1 fl (7.5-11.1); MONO % 13.9 % (3.8-10.2); NEUT % 40.5 % (42.8-82.8); PLATELET COUNT 201 10^3/uL (134-434); RBC 4.25 M/mm3 (3.60-5.2); RDW 20.3 % (11.6-15.6); WHITE BLOOD COUNT 4.1 K/mm3 (4.0-10.0)
[2020-10-19 10:11] LABS: CALCIUM 9.1 mg/dL (8.5-10.1)
[2020-10-19 10:12] LABS: ALBUMIN 3.1 g/dl (3.4-5.0); BLOOD UREA NITROGEN 11.8 mg/dL (7-18); MAGNESIUM 1.9 mg/dL (1.8-2.4)
[2020-10-19 10:14] LABS: CREATININE 0.8 mg/dL (0.55-1.3)
[2020-10-19 10:16] LABS: BILIRUBIN,TOTAL 0.6 mg/dL (0.2-1); TOT PROT 6.9 g/dl (6.4-8.2)
[~2020-10-26 05:07] MED LIST: DEXAMETHASONE SODIUM PHOSPHATE 10 MG in SODIUM CHLORIDE 50 ML IVPB ONE; DEXTROSE 5% IVPB ONE; FLUOROURACIL CP ONE; LEUCOVORIN IVPB ONE; PALONOSETRON HCL 0.25 MG/5 ML VIAL IVPUSH ONE; SODIUM CHLORIDE 250 ML IV ONE; SODIUM CHLORIDE CP ONE; WATER IVPB ONE
[2020-10-26 09:30] LABS: BASO % 0.3 % (0-2.0); EOS % 1.3 % (0-4.5); HEMATOCRIT 33.8 % (32.4-45.2); HEMOGLOBIN 11.1 GM/dL (10.7-15.3); LYMPH % 40.8 % (8-40); MCH 26.7 pg (25.7-33.7); MCHC 32.9 g/dl (32.0-36.0); MEAN CELL VOLUME 81.1 fl (80-96); MEAN PLT VOLUME 8.8 fl (7.5-11.1); MONO % 9.8 % (3.8-10.2); NEUT % 47.8 % (42.8-82.8); PLATELET COUNT 243 10^3/uL (134-434); RBC 4.17 M/mm3 (3.60-5.2); RDW 18.8 % (11.6-15.6)
[2020-10-26] MEDS ORDERED: SODIUM CHLORIDE 250 ML IV ONE (09:30)
[2020-10-26] MEDS ORDERED: LIDOCAINE 2.5%/PRILOCAINE 2.5% 30 GRAM TUBE TP ONE (09:45)
[2020-10-26 09:52] LABS: ALBUMIN 3.1 g/dl (3.4-5.0); BLOOD UREA NITROGEN 12.6 mg/dL (7-18)
[2020-10-26 09:55] LABS: CREATININE 0.9 mg/dL (0.55-1.3)
[2020-10-26 09:56] LABS: BILIRUBIN,TOTAL 0.5 mg/dL (0.2-1)
[2020-10-26 09:57] LABS: TOT PROT 6.8 g/dl (6.4-8.2)
[2020-10-26] MEDS ORDERED: PALONOSETRON HCL 0.25 MG/5 ML VIAL IVPUSH ONE (10:00)
[2020-10-26] MEDS ORDERED: FAMOTIDINE 20 MG/50 ML IVPB 20 MG/50 ML MG IVPB ONE (10:00)
[2020-10-26] MEDS ORDERED: DEXAMETHASONE SODIUM PHOSPHATE 12 MG, DIPHENHYDRAMINE 25 MG in SODIUM CHLORIDE 100 ML IVPB ONE (10:00)
[2020-10-26] MEDS ORDERED: DEXTROSE 5% IVPB ONE (10:30)
[2020-10-26] MEDS ORDERED: WATER IVPB ONE (10:30)
[2020-10-26] MEDS ORDERED: LEUCOVORIN IVPB ONE (10:30)
[2020-10-26] MEDS ORDERED: FLUOROURACIL CP ONE (12:30)
[2020-10-26] MEDS ORDERED: SODIUM CHLORIDE CP ONE (12:30)
[2020-10-26 17:47] VITALS: BP 162/70; PULSE 72; TEMP 98.7
== END 2020-10-26 17:40 | disposition home or self-care (01) ==
LOC: JONCCHEMO 05:07
PROVIDERS: ATTEND Internal Medicine Hematology & Oncology
PROC: 3E04305 Introduction of Other Antineoplastic into Central Vein, Percutaneous Approach (ICD-10-PCS; principal; 2020-10-26)
PROC: 3E04305 Introduction of Other Antineoplastic into Central Vein, Percutaneous Approach (ICD-10-PCS; 2020-10-26)
PROC: 3E043GC Introduction of Other Therapeutic Substance into Central Vein, Percutaneous Approach (ICD-10-PCS; 2020-10-26)
PROC: 3E0437Z Introduction of Electrolytic and Water Balance Substance into Central Vein, Percutaneous Approach (ICD-10-PCS; 2020-10-26)
DX: Z51.11 Encounter for antineoplastic chemotherapy (principal); C18.0 Malignant neoplasm of cecum; C18.9 Malignant neoplasm of colon, unspecified; I10 Essential (primary) hypertension; E11.9 Type 2 diabetes mellitus without complications; E78.00 Pure hypercholesterolemia, unspecified; M19.90 Unspecified osteoarthritis, unspecified site; Z86.73 Personal history of transient ischemic attack (TIA), and cerebral infarction without residual deficits; Z87.891 Personal history of nicotine dependence
CPT/HCPCS: 36415; 80053; 82607; 82728; 82747; 83540; 83550; 83735; 85014; 85025; 96366; 96367; 96413; 96415; G0498; J2469; J9263

== ENCOUNTER 2020-10-28 05:09 | Day surgery (SDC) | payer OTHER, MEDICARE ==
[2020-10-28 15:59] VITALS: BP 119/56; PULSE 76; TEMP 98.1
[2020-11-25 15:37] LABS: BASO % 0.6 % (0-2.0); EOS % 0.9 % (0-4.5); HEMATOCRIT 23.9 % (32.4-45.2); HEMOGLOBIN 8.3 GM/dL (10.7-15.3); LYMPH % 29.2 % (8-40); MCH 32.2 pg (25.7-33.7); MCHC 34.9 g/dl (32.0-36.0); MEAN PLT VOLUME 7.9 fl (7.5-11.1); MONO % 6.9 % (3.8-10.2); NEUT % 62.4 % (42.8-82.8); PLATELET COUNT 170 10^3/uL (134-434); RBC 2.59 M/mm3 (3.60-5.2); RDW 20.6 % (11.6-15.6); WHITE BLOOD COUNT 4.9 K/mm3 (4.0-10.0)
[2020-11-25 16:33] LABS: ANISOCYTOSIS 2+; MACROCYTOSIS 0; PLATELET ESTIMATE NORMAL; TARGET CELLS 1+; TEAR DROP CELLS 1+
== END 2020-10-28 15:35 | disposition home or self-care (01) ==
LOC: JONCNONCHE 05:09
PROVIDERS: ATTEND Internal Medicine Hematology & Oncology
PROC: 2W54XYZ Removal of Other Device on Chest Wall (ICD-10-PCS; principal; 2020-10-28)
DX: Z53.8 Procedure and treatment not carried out for other reasons (principal)
CPT/HCPCS: 36415; 85025

== ENCOUNTER 2020-11-09 07:06 | Day surgery (SDC) | payer OTHER, MEDICARE ==
[2020-11-09 09:03] LABS: BASO % 1.3 % (0-2.0); EOS % 3.5 % (0-4.5); HEMATOCRIT 34.4 % (32.4-45.2); HEMOGLOBIN 11.4 GM/dL (10.7-15.3); LYMPH % 37.9 % (8-40); MCH 26.9 pg (25.7-33.7); MCHC 33.1 g/dl (32.0-36.0); MEAN CELL VOLUME 81.2 fl (80-96); MEAN PLT VOLUME 8.4 fl (7.5-11.1); MONO % 9.8 % (3.8-10.2); NEUT % 47.5 % (42.8-82.8); PLATELET COUNT 201 10^3/uL (134-434); RBC 4.24 M/mm3 (3.60-5.2); RDW 17.4 % (11.6-15.6); WHITE BLOOD COUNT 4.9 K/mm3 (4.0-10.0)
[2020-11-09] MEDS ORDERED: SODIUM CHLORIDE 250 ML IV ONE (09:30)
[2020-11-09 09:35] LABS: ALBUMIN 3.2 g/dl (3.4-5.0); BLOOD UREA NITROGEN 15.7 mg/dL (7-18); MAGNESIUM 1.8 mg/dL (1.8-2.4)
[2020-11-09 09:38] LABS: CREATININE 0.9 mg/dL (0.55-1.3)
[2020-11-09 09:39] LABS: BILIRUBIN,TOTAL 0.4 mg/dL (0.2-1)
[2020-11-09] MEDS ORDERED: DEXAMETHASONE SODIUM PHOSPHATE 12 MG, DIPHENHYDRAMINE 25 MG in SODIUM CHLORIDE 100 ML IVPB ONE (10:00)
[2020-11-09] MEDS ORDERED: PALONOSETRON HCL 0.25 MG/5 ML VIAL IVPUSH ONE (10:00)
[2020-11-09] MEDS ORDERED: FAMOTIDINE 20 MG/50 ML IVPB 20 MG/50 ML MG IVPB ONE (10:00)
[2020-11-09] MEDS ORDERED: WATER IVPB ONE (10:30)
[2020-11-09] MEDS ORDERED: DEXTROSE 5% IVPB ONE (10:30)
[2020-11-09] MEDS ORDERED: LEUCOVORIN IVPB ONE (10:30)
[2020-11-09] MEDS ORDERED: SODIUM CHLORIDE CP ONE (12:30)
[2020-11-09] MEDS ORDERED: FLUOROURACIL CP ONE (12:30)
[2020-11-09 17:07] VITALS: TEMP 98.2
[2020-11-09 17:08] VITALS: BP 164/74; PULSE 66
== END 2020-11-09 15:40 | disposition home or self-care (01) ==
LOC: JONCCHEMO 07:06
PROVIDERS: ATTEND Internal Medicine Hematology & Oncology
DX: Z51.11 Encounter for antineoplastic chemotherapy (principal); C18.9 Malignant neoplasm of colon, unspecified
CPT/HCPCS: 36415; 80053; 82378; 83735; 85025; 96361; 96366; 96367; 96375; 96413; 96415; G0498; J2469; J9263

== ENCOUNTER 2020-11-11 07:17 | Day surgery (SDC) | payer OTHER, MEDICARE ==
[2020-11-11 14:52] VITALS: BP 129/71; PULSE 60; TEMP 98.5
== END 2020-11-11 14:20 | disposition home or self-care (01) ==
LOC: JONCNONCHE 07:17
PROVIDERS: ATTEND Internal Medicine Hematology & Oncology
PROC: 2W54XYZ Removal of Other Device on Chest Wall (ICD-10-PCS; principal; 2020-11-11)
DX: Z53.8 Procedure and treatment not carried out for other reasons (principal)

== ENCOUNTER 2020-11-23 07:01 | Day surgery (SDC) | payer OTHER, MEDICARE ==
[2020-11-23] MEDS ORDERED: SODIUM CHLORIDE 250 ML IV ONE (09:00)
[2020-11-23 09:24] LABS: BASO % 0.7 % (0-2.0); EOS % 2.3 % (0-4.5); HEMOGLOBIN 12.3 GM/dL (10.7-15.3); LYMPH % 44.4 % (8-40); MCH 27.5 pg (25.7-33.7); MCHC 33.4 g/dl (32.0-36.0); MEAN CELL VOLUME 82.5 fl (80-96); MEAN PLT VOLUME 8.9 fl (7.5-11.1); MONO % 9.4 % (3.8-10.2); NEUT % 43.2 % (42.8-82.8); PLATELET COUNT 193 10^3/uL (134-434); RBC 4.48 M/mm3 (3.60-5.2); RDW 16.2 % (11.6-15.6); WHITE BLOOD COUNT 4.2 K/mm3 (4.0-10.0)
[2020-11-23] MEDS ORDERED: PALONOSETRON HCL 0.25 MG/5 ML VIAL IVPUSH ONE (09:30)
[2020-11-23] MEDS ORDERED: DEXAMETHASONE SODIUM PHOSPHATE 12 MG, DIPHENHYDRAMINE 25 MG in SODIUM CHLORIDE 100 ML IVPB ONE (09:30)
[2020-11-23] MEDS ORDERED: FAMOTIDINE 20 MG/50 ML IVPB 20 MG/50 ML MG IVPB ONE (09:30)
[2020-11-23 09:48] LABS: ALBUMIN 3.3 g/dl (3.4-5.0); BLOOD UREA NITROGEN 19.4 mg/dL (7-18); CALCIUM 9.2 mg/dL (8.5-10.1); MAGNESIUM 1.8 mg/dL (1.8-2.4)
[2020-11-23 09:52] LABS: CREATININE 0.9 mg/dL (0.55-1.3)
[2020-11-23 09:53] LABS: BILIRUBIN,TOTAL 0.4 mg/dL (0.2-1); TOT PROT 7.4 g/dl (6.4-8.2)
[2020-11-23] MEDS ORDERED: WATER IVPB ONE (10:00)
[2020-11-23] MEDS ORDERED: DEXTROSE 5% IVPB ONE (10:00)
[2020-11-23] MEDS ORDERED: LEUCOVORIN IVPB ONE (10:00)
[2020-11-23] MEDS ORDERED: FLUOROURACIL CP ONE (12:00)
[2020-11-23] MEDS ORDERED: SODIUM CHLORIDE CP ONE (12:00)
[2020-11-23 16:32] VITALS: BP 115/73; PULSE 75; TEMP 97.8
[2020-11-23] MEDS ORDERED: PORTA CATH FLUSH 10 ML IVPUSH ONE (16:32)
== END 2020-11-23 15:15 | disposition home or self-care (01) ==
LOC: JONCCHEMO 07:01
PROVIDERS: ATTEND Internal Medicine Hematology & Oncology
PROC: 3E04305 Introduction of Other Antineoplastic into Central Vein, Percutaneous Approach (ICD-10-PCS; principal; 2020-11-23)
PROC: 3E04305 Introduction of Other Antineoplastic into Central Vein, Percutaneous Approach (ICD-10-PCS; 2020-11-23)
PROC: 3E043GC Introduction of Other Therapeutic Substance into Central Vein, Percutaneous Approach (ICD-10-PCS; 2020-11-23)
PROC: 3E0437Z Introduction of Electrolytic and Water Balance Substance into Central Vein, Percutaneous Approach (ICD-10-PCS; 2020-11-23)
DX: Z51.11 Encounter for antineoplastic chemotherapy (principal); C18.9 Malignant neoplasm of colon, unspecified; I10 Essential (primary) hypertension; E11.9 Type 2 diabetes mellitus without complications; E78.00 Pure hypercholesterolemia, unspecified; M19.90 Unspecified osteoarthritis, unspecified site; Z86.73 Personal history of transient ischemic attack (TIA), and cerebral infarction without residual deficits; Z98.61 Coronary angioplasty status
CPT/HCPCS: 36415; 80053; 83735; 85025; 96367; 96413; 96415; G0498; J2469; J9263

== ENCOUNTER 2020-11-25 07:11 | Day surgery (SDC) | payer OTHER, MEDICARE ==
[2020-11-25 17:03] VITALS: BP 129/65; PULSE 66; TEMP 98.8
== END 2020-11-25 12:40 | disposition home or self-care (01) ==
LOC: JONCNONCHE 07:11
PROVIDERS: ATTEND Internal Medicine Hematology & Oncology
PROC: 2W54XYZ Removal of Other Device on Chest Wall (ICD-10-PCS; principal; 2020-11-25)
DX: Z53.8 Procedure and treatment not carried out for other reasons (principal)

== ENCOUNTER 2020-12-07 06:40 | Day surgery (SDC) | payer OTHER, MEDICARE ==
[2020-12-07] MEDS ORDERED: SODIUM CHLORIDE 250 ML IV ONE (09:00)
[2020-12-07 09:14] LABS: BASO % 1.3 % (0-2.0); HEMATOCRIT 35.7 % (32.4-45.2); HEMOGLOBIN 11.9 GM/dL (10.7-15.3); LYMPH % 44.5 % (8-40); MCH 27.4 pg (25.7-33.7); MCHC 33.4 g/dl (32.0-36.0); MEAN CELL VOLUME 82.1 fl (80-96); MEAN PLT VOLUME 8.3 fl (7.5-11.1); MONO % 10.7 % (3.8-10.2); NEUT % 41.5 % (42.8-82.8); PLATELET COUNT 177 10^3/uL (134-434); RBC 4.35 M/mm3 (3.60-5.2); WHITE BLOOD COUNT 4.5 K/mm3 (4.0-10.0)
[2020-12-07] MEDS ORDERED: DEXAMETHASONE SODIUM PHOSPHATE 12 MG, DIPHENHYDRAMINE 25 MG in SODIUM CHLORIDE 100 ML IVPB ONE (09:30)
[2020-12-07] MEDS ORDERED: FAMOTIDINE 20 MG/50 ML IVPB 20 MG/50 ML MG IVPB ONE (09:30)
[2020-12-07] MEDS ORDERED: PALONOSETRON HCL 0.25 MG/5 ML VIAL IVPUSH ONE (09:30)
[2020-12-07 09:49] LABS: ALBUMIN 3.2 g/dl (3.4-5.0); BLOOD UREA NITROGEN 19.4 mg/dL (7-18); CALCIUM 9.1 mg/dL (8.5-10.1)
[2020-12-07 09:54] LABS: TOT PROT 7.2 g/dl (6.4-8.2)
[2020-12-07 09:56] LABS: BILIRUBIN,TOTAL 0.4 mg/dL (0.2-1)
[2020-12-07] MEDS ORDERED: WATER IVPB ONE ×2 (10:00→11:00)
[2020-12-07] MEDS ORDERED: DEXTROSE 5% IVPB ONE ×2 (10:00→11:00)
[2020-12-07] MEDS ORDERED: LEUCOVORIN IVPB ONE ×2 (10:00→11:00)
[2020-12-07] MEDS ORDERED: SODIUM CHLORIDE CP ONE ×2 (12:00→13:00)
[2020-12-07] MEDS ORDERED: FLUOROURACIL CP ONE ×2 (12:00→13:00)
[2020-12-07 17:59] VITALS: TEMP 98.2
[2020-12-07 18:00] VITALS: BP 137/54; PULSE 57
== END 2020-12-07 16:15 | disposition home or self-care (01) ==
LOC: JONCCHEMO 06:40
PROVIDERS: ATTEND Internal Medicine Hematology & Oncology
DX: Z51.11 Encounter for antineoplastic chemotherapy (principal); C18.9 Malignant neoplasm of colon, unspecified; E11.9 Type 2 diabetes mellitus without complications
CPT/HCPCS: 36415; 80053; 85025; 96366; 96367; 96375; 96413; 96415; G0498; J2469; J9263

== ENCOUNTER 2020-12-09 06:33 | Day surgery (SDC) | payer OTHER, MEDICARE ==
[2020-12-09 15:56] VITALS: BP 123/78; PULSE 72; TEMP 98.9
[2020-12-09] MEDS ORDERED: PORTA CATH FLUSH 10 ML IVPUSH ONE (15:56)
== END 2020-12-09 14:05 | disposition home or self-care (01) ==
LOC: JONCNONCHE 06:33
PROVIDERS: ATTEND Internal Medicine Hematology & Oncology
DX: Z53.8 Procedure and treatment not carried out for other reasons (principal)

== ENCOUNTER 2020-12-21 07:15 | Day surgery (SDC) | payer OTHER, MEDICARE ==
[2020-12-21 08:50] LABS: BASO % 0.6 % (0-2.0); HEMATOCRIT 34.7 % (32.4-45.2); HEMOGLOBIN 11.7 GM/dL (10.7-15.3); LYMPH % 30.3 % (8-40); MCH 28.3 pg (25.7-33.7); MCHC 33.8 g/dl (32.0-36.0); MEAN CELL VOLUME 83.7 fl (80-96); NEUT % 58.1 % (42.8-82.8); PLATELET COUNT 181 10^3/uL (134-434); RBC 4.15 M/mm3 (3.60-5.2); RDW 16.5 % (11.6-15.6); WHITE BLOOD COUNT 5.2 K/mm3 (4.0-10.0)
[2020-12-21 08:58] LABS: CALCIUM 8.9 mg/dL (8.5-10.1)
[2020-12-21 08:59] LABS: MAGNESIUM 1.7 mg/dL (1.8-2.4)
[2020-12-21] MEDS ORDERED: SODIUM CHLORIDE 250 ML IV ONE (09:00)
[2020-12-21 09:03] LABS: BILIRUBIN,TOTAL 0.4 mg/dL (0.2-1)
[2020-12-21 09:04] LABS: TOT PROT 7.2 g/dl (6.4-8.2)
[2020-12-21] MEDS ORDERED: SODIUM CHLORIDE 500 ML IV STA (09:42)
[2020-12-21] MEDS ORDERED: MAGNESIUM SULF 50% (8.12 MEQ/2 ML-1 GM VIAL) IVPB ONE (09:43)
[2020-12-21] MEDS ORDERED: PALONOSETRON HCL 0.25 MG/5 ML VIAL IVPUSH ONE (10:00)
[2020-12-21] MEDS ORDERED: DEXAMETHASONE SODIUM PHOSPHATE 12 MG, DIPHENHYDRAMINE 25 MG in SODIUM CHLORIDE 100 ML IVPB ONE (10:00)
[2020-12-21] MEDS ORDERED: FAMOTIDINE 20 MG/50 ML IVPB 20 MG/50 ML MG IVPB ONE (10:00)
[2020-12-21] MEDS ORDERED: DEXTROSE 5% IVPB ONE (10:30)
[2020-12-21] MEDS ORDERED: WATER IVPB ONE (10:30)
[2020-12-21] MEDS ORDERED: LEUCOVORIN IVPB ONE (10:30)
[2020-12-21] MEDS ORDERED: MAGNESIUM SULFATE IN WATER 2 GM/50 ML IVPB IVPB ONE (10:30)
[2020-12-21] MEDS ORDERED: SODIUM CHLORIDE CP ONE (12:30)
[2020-12-21] MEDS ORDERED: FLUOROURACIL CP ONE (12:30)
[2020-12-21 15:55] VITALS: TEMP 98.8
[2020-12-21] MEDS ORDERED: PORTA CATH FLUSH 10 ML IVPUSH ONE (16:05)
[2020-12-21 16:12] VITALS: BP 134/59; PULSE 76
== END 2020-12-21 14:30 | disposition home or self-care (01) ==
LOC: JONCCHEMO 07:15
PROVIDERS: ATTEND Internal Medicine Hematology & Oncology
PROC: 3E04305 Introduction of Other Antineoplastic into Central Vein, Percutaneous Approach (ICD-10-PCS; principal; 2020-12-21)
PROC: 3E04305 Introduction of Other Antineoplastic into Central Vein, Percutaneous Approach (ICD-10-PCS; 2020-12-21)
PROC: 3E043GC Introduction of Other Therapeutic Substance into Central Vein, Percutaneous Approach (ICD-10-PCS; 2020-12-21)
PROC: 3E0437Z Introduction of Electrolytic and Water Balance Substance into Central Vein, Percutaneous Approach (ICD-10-PCS; 2020-12-21)
DX: Z51.11 Encounter for antineoplastic chemotherapy (principal); C18.9 Malignant neoplasm of colon, unspecified
CPT/HCPCS: 36415; 80053; 83735; 84439; 84443; 85025; 96361; 96366; 96367; 96368; 96375; 96413; 96415; G0498; J2469; J9263

== ENCOUNTER 2020-12-23 06:33 | Day surgery (SDC) | payer OTHER, MEDICARE ==
[2020-12-23] MEDS ORDERED: SODIUM CHLORIDE 500 ML IV ONE (12:00)
[2020-12-23 16:09] VITALS: TEMP 98.9
[2020-12-23 16:10] VITALS: BP 148/68; PULSE 83
== END 2020-12-23 16:12 | disposition home or self-care (01) ==
LOC: JONCCHEMO 06:33
PROVIDERS: ATTEND Internal Medicine Hematology & Oncology
PROC: 3E0437Z Introduction of Electrolytic and Water Balance Substance into Central Vein, Percutaneous Approach (ICD-10-PCS; principal; 2020-12-23)
DX: C18.9 Malignant neoplasm of colon, unspecified (principal); Z76.89 Persons encountering health services in other specified circumstances
CPT/HCPCS: 96360; 96361

== ENCOUNTER 2021-01-04 07:32 | Day surgery (SDC) | payer OTHER, MEDICARE ==
[2021-01-04 09:20] LABS: BASO % 0.9 % (0-2.0); EOS % 2.1 % (0-4.5); HEMATOCRIT 34.2 % (32.4-45.2); HEMOGLOBIN 11.3 GM/dL (10.7-15.3); LYMPH % 42.5 % (8-40); MCH 27.8 pg (25.7-33.7); MEAN CELL VOLUME 84.2 fl (80-96); MEAN PLT VOLUME 8.5 fl (7.5-11.1); MONO % 10.8 % (3.8-10.2); NEUT % 43.7 % (42.8-82.8); PLATELET COUNT 195 10^3/uL (134-434); RBC 4.06 M/mm3 (3.60-5.2); RDW 16.6 % (11.6-15.6); WHITE BLOOD COUNT 4.3 K/mm3 (4.0-10.0)
[2021-01-04] MEDS ORDERED: SODIUM CHLORIDE 250 ML IV ONE (09:30)
[2021-01-04 09:39] LABS: CALCIUM 9.4 mg/dL (8.5-10.1)
[2021-01-04 09:40] LABS: ALBUMIN 3.2 g/dl (3.4-5.0); BLOOD UREA NITROGEN 19.5 mg/dL (7-18)
[2021-01-04 09:42] LABS: BILIRUBIN,DIRECT 0.2 mg/dL (0.0-0.2)
[2021-01-04 09:44] LABS: BILIRUBIN,TOTAL 0.4 mg/dL (0.2-1); TOT PROT 7.5 g/dl (6.4-8.2)
[2021-01-04] MEDS ORDERED: PALONOSETRON HCL 0.25 MG/5 ML VIAL IVPUSH ONE (10:00)
[2021-01-04] MEDS ORDERED: DEXAMETHASONE SODIUM PHOSPHATE 12 MG, DIPHENHYDRAMINE 25 MG in SODIUM CHLORIDE 100 ML IVPB ONE (10:00)
[2021-01-04] MEDS ORDERED: FAMOTIDINE 20 MG/50 ML IVPB 20 MG/50 ML MG IVPB ONE (10:00)
[2021-01-04] MEDS ORDERED: SODIUM CHLORIDE 500 ML IV STA (10:06)
[2021-01-04] MEDS ORDERED: LEUCOVORIN IVPB ONE (10:30)
[2021-01-04] MEDS ORDERED: DEXTROSE 5% IVPB ONE (10:30)
[2021-01-04] MEDS ORDERED: WATER IVPB ONE (10:30)
[2021-01-04 10:47] LABS: MAGNESIUM 1.9 mg/dL (1.8-2.4)
[2021-01-04] MEDS ORDERED: FLUOROURACIL CP ONE (12:30)
[2021-01-04] MEDS ORDERED: SODIUM CHLORIDE CP ONE (12:30)
[2021-01-04 18:22] VITALS: BP 141/60; PULSE 73; TEMP 98.8
== END 2021-01-04 15:30 | disposition home or self-care (01) ==
LOC: JONCCHEMO 07:32
PROVIDERS: ATTEND Internal Medicine Hematology & Oncology
PROC: 3E04305 Introduction of Other Antineoplastic into Central Vein, Percutaneous Approach (ICD-10-PCS; principal; 2021-01-04)
PROC: 3E04305 Introduction of Other Antineoplastic into Central Vein, Percutaneous Approach (ICD-10-PCS; 2021-01-04)
PROC: 3E043GC Introduction of Other Therapeutic Substance into Central Vein, Percutaneous Approach (ICD-10-PCS; 2021-01-04)
DX: Z51.11 Encounter for antineoplastic chemotherapy (principal); C18.9 Malignant neoplasm of colon, unspecified; I10 Essential (primary) hypertension; E11.9 Type 2 diabetes mellitus without complications; E78.00 Pure hypercholesterolemia, unspecified; I35.0 Nonrheumatic aortic (valve) stenosis; Z86.73 Personal history of transient ischemic attack (TIA), and cerebral infarction without residual deficits; Z98.61 Coronary angioplasty status; Z87.891 Personal history of nicotine dependence
CPT/HCPCS: 36415; 80048; 80076; 83735; 85025; 96366; 96367; 96375; 96413; 96415; G0498; J2469; J9263

== ENCOUNTER 2021-01-06 07:02 | Day surgery (SDC) | payer OTHER, MEDICARE ==
[2021-01-06 16:03] VITALS: BP 130/72; PULSE 80; TEMP 97.6
== END 2021-01-06 13:10 | disposition home or self-care (01) ==
LOC: JONCNONCHE 07:02
PROVIDERS: ATTEND Internal Medicine Hematology & Oncology
PROC: 2W54XYZ Removal of Other Device on Chest Wall (ICD-10-PCS; principal; 2021-01-06)
DX: Z53.8 Procedure and treatment not carried out for other reasons (principal)

== ENCOUNTER 2021-01-18 07:36 | Day surgery (SDC) | payer OTHER, MEDICARE ==
[2021-01-18] MEDS ORDERED: SODIUM CHLORIDE 250 ML IV ONE (09:00)
[2021-01-18] MEDS ORDERED: SODIUM CHLORIDE 500 ML IV ONE (09:28)
[2021-01-18] MEDS ORDERED: DEXAMETHASONE IVPB ONE (10:00)
[2021-01-18] MEDS ORDERED: SODIUM CHLORIDE IVPB ONE (10:00)
[2021-01-18] MEDS ORDERED: PALONOSETRON HCL 0.25 MG/5 ML VIAL IVPUSH ONE (10:00)
[2021-01-18] MEDS ORDERED: FAMOTIDINE 20 MG/50 ML IVPB 20 MG/50 ML MG IVPB ONE (10:00)
[2021-01-18] MEDS ORDERED: DIPHENHYDRAMINE IVPB ONE (10:00)
[2021-01-18 10:13] LABS: BASO % 0.9 % (0-2.0); EOS % 1.7 % (0-4.5); HEMOGLOBIN 11.2 GM/dL (10.7-15.3); LYMPH % 38.1 % (8-40); MCH 28.7 pg (25.7-33.7); MCHC 33.8 g/dl (32.0-36.0); MEAN PLT VOLUME 8.8 fl (7.5-11.1); NEUT % 48.3 % (42.8-82.8); PLATELET COUNT 186 10^3/uL (134-434); RBC 3.89 M/mm3 (3.60-5.2); RDW 16.2 % (11.6-15.6); WHITE BLOOD COUNT 5.2 K/mm3 (4.0-10.0)
[2021-01-18] MEDS ORDERED: LEUCOVORIN IVPB ONE (10:30)
[2021-01-18] MEDS ORDERED: DEXTROSE 5% IVPB ONE (10:30)
[2021-01-18] MEDS ORDERED: WATER IVPB ONE (10:30)
[2021-01-18 10:38] LABS: CALCIUM 9.3 mg/dL (8.5-10.1)
[2021-01-18 10:39] LABS: ALBUMIN 3.2 g/dl (3.4-5.0); BLOOD UREA NITROGEN 23.7 mg/dL (7-18); MAGNESIUM 1.7 mg/dL (1.8-2.4)
[2021-01-18 10:42] LABS: CREATININE 0.9 mg/dL (0.55-1.3)
[2021-01-18 10:43] LABS: BILIRUBIN,TOTAL 0.5 mg/dL (0.2-1); TOT PROT 7.3 g/dl (6.4-8.2)
[2021-01-18] MEDS ORDERED: SODIUM CHLORIDE CP ONE (12:30)
[2021-01-18] MEDS ORDERED: FLUOROURACIL CP ONE (12:30)
[2021-01-18] MEDS ORDERED: MAGNESIUM SULF 50% (8.12 MEQ/2 ML-1 GM VIAL) IVPB ONE (14:15)
[2021-01-18 15:59] VITALS: TEMP 97.8
[2021-01-18 17:02] VITALS: BP 142/79; PULSE 81
== END 2021-01-18 17:23 | disposition home or self-care (01) ==
LOC: JONCCHEMO 07:36
PROVIDERS: ATTEND Internal Medicine Hematology & Oncology
DX: Z51.11 Encounter for antineoplastic chemotherapy (principal); C18.9 Malignant neoplasm of colon, unspecified
CPT/HCPCS: 36415; 80053; 82607; 83735; 85025; 96361; 96366; 96367; 96375; 96413; 96415; J1100; J2469; J9263

== ENCOUNTER 2021-01-20 07:36 | Day surgery (SDC) | payer OTHER, MEDICARE ==
[2021-01-20 16:31] VITALS: BP 123/53; PULSE 67; TEMP 98
[2021-01-20] MEDS ORDERED: PORTA CATH FLUSH 10 ML IVPUSH ONE (16:31)
== END 2021-01-20 14:30 | disposition home or self-care (01) ==
LOC: JONCCHEMO 07:36
PROVIDERS: ATTEND Internal Medicine Hematology & Oncology
DX: Z53.8 Procedure and treatment not carried out for other reasons (principal)

== ENCOUNTER 2021-02-01 07:32 | Day surgery (SDC) | payer OTHER, MEDICARE ==
[2021-02-01] MEDS ORDERED: SODIUM CHLORIDE 250 ML IV ONE (09:00)
[2021-02-01] MEDS ORDERED: FAMOTIDINE 20 MG/50 ML IVPB 20 MG/50 ML MG IVPB ONE (09:30)
[2021-02-01] MEDS ORDERED: DIPHENHYDRAMINE IVPB ONE (09:30)
[2021-02-01] MEDS ORDERED: PALONOSETRON HCL 0.25 MG/5 ML VIAL IVPUSH ONE (09:30)
[2021-02-01] MEDS ORDERED: DEXAMETHASONE IVPB ONE (09:30)
[2021-02-01] MEDS ORDERED: SODIUM CHLORIDE IVPB ONE (09:30)
[2021-02-01 09:40] LABS: BASO % 0.6 % (0-2.0); EOS % 0.6 % (0-4.5); HEMOGLOBIN 10.6 GM/dL (10.7-15.3); LYMPH % 23.2 % (8-40); MCH 28.3 pg (25.7-33.7); MCHC 33.1 g/dl (32.0-36.0); MEAN CELL VOLUME 85.4 fl (80-96); MEAN PLT VOLUME 8.8 fl (7.5-11.1); NEUT % 64.6 % (42.8-82.8); PLATELET COUNT 176 10^3/uL (134-434); RBC 3.75 M/mm3 (3.60-5.2); RDW 16.8 % (11.6-15.6); WHITE BLOOD COUNT 5.3 K/mm3 (4.0-10.0)
[2021-02-01] MEDS ORDERED: SODIUM CHLORIDE 500 ML IV STA (09:59)
[2021-02-01] MEDS ORDERED: LEUCOVORIN IVPB ONE (10:00)
[2021-02-01] MEDS ORDERED: WATER IVPB ONE (10:00)
[2021-02-01] MEDS ORDERED: DEXTROSE 5% IVPB ONE (10:00)
[2021-02-01 10:04] LABS: ALBUMIN 2.9 g/dl (3.4-5.0); BLOOD UREA NITROGEN 16.7 mg/dL (7-18); CALCIUM 9.4 mg/dL (8.5-10.1)
[2021-02-01 10:08] LABS: CREATININE 0.9 mg/dL (0.55-1.3)
[2021-02-01 10:09] LABS: BILIRUBIN,TOTAL 0.4 mg/dL (0.2-1)
[2021-02-01 10:35] LABS: MAGNESIUM 1.8 mg/dL (1.8-2.4)
[2021-02-01] MEDS ORDERED: SODIUM CHLORIDE CP ONE (12:00)
[2021-02-01] MEDS ORDERED: FLUOROURACIL CP ONE (12:00)
[2021-02-01 19:18] VITALS: TEMP 98.8
[2021-02-01 19:34] VITALS: BP 146/58; PULSE 64
== END 2021-02-01 17:15 | disposition home or self-care (01) ==
LOC: JONCCHEMO 07:32
PROVIDERS: ATTEND Internal Medicine Hematology & Oncology
DX: Z51.11 Encounter for antineoplastic chemotherapy (principal); C18.9 Malignant neoplasm of colon, unspecified; E11.9 Type 2 diabetes mellitus without complications; I10 Essential (primary) hypertension
CPT/HCPCS: 36415; 80053; 82962; 83735; 85025; 96361; 96367; 96375; 96413; 96415; 96417; G0498; J1100; J2469; J9263

== ENCOUNTER 2021-02-03 08:30 | Day surgery (SDC) | payer OTHER, MEDICARE ==
[2021-02-03 16:46] LABS: CHLORIDE 106 mmol/L (98-107); SODIUM 139 mmol/L (136-145)
[2021-02-03 16:48] LABS: ALBUMIN 2.9 g/dl (3.4-5.0); ANION GAP 7 MMOL/L (8-16); BLOOD UREA NITROGEN 15.6 mg/dL (7-18); CALCIUM 9.3 mg/dL (8.5-10.1); CO2 27 mmol/L (21-32)
[2021-02-03 16:49] LABS: GLUCOSE,RANDOM 179 mg/dL (74-106)
[2021-02-03 16:51] LABS: SGPT/ALT 25 U/L (13-61)
[2021-02-03 16:52] LABS: CREATININE 0.8 mg/dL (0.55-1.3); SGOT/AST 23 U/L (15-37)
[2021-02-03 16:53] LABS: BILIRUBIN,TOTAL 0.4 mg/dL (0.2-1); TOT PROT 6.8 g/dl (6.4-8.2)
[2021-02-03 16:54] LABS: ALK PHOS 88 U/L (45-117)
[2021-02-03 17:19] VITALS: BP 102/60; PULSE 70; TEMP 98.6
== END 2021-02-03 18:15 | disposition home or self-care (01) ==
LOC: JONCNONCHE 08:30
PROVIDERS: ATTEND Internal Medicine Hematology & Oncology
DX: Z53.8 Procedure and treatment not carried out for other reasons (principal)
CPT/HCPCS: 36415; 80053; 82550; 84484; 93005; 93010

== ENCOUNTER 2021-02-15 08:17 | Day surgery (SDC) | payer OTHER, MEDICARE ==
[2021-02-15] MEDS ORDERED: FAMOTIDINE 20 MG/50 ML IVPB 20 MG/50 ML MG IVPB ONE (09:30)
[2021-02-15] MEDS ORDERED: DIPHENHYDRAMINE IVPB ONE (09:30)
[2021-02-15] MEDS ORDERED: DEXAMETHASONE IVPB ONE (09:30)
[2021-02-15] MEDS ORDERED: SODIUM CHLORIDE IVPB ONE (09:30)
[2021-02-15] MEDS ORDERED: PALONOSETRON HCL 0.25 MG/5 ML VIAL IVPUSH ONE (09:30)
[2021-02-15] MEDS ORDERED: LEUCOVORIN IVPB ONE (10:00)
[2021-02-15] MEDS ORDERED: DEXTROSE 5% IVPB ONE (10:00)
[2021-02-15] MEDS ORDERED: WATER IVPB ONE (10:00)
[2021-02-15 10:31] LABS: BASO % 0.6 % (0-2.0); EOS % 1.6 % (0-4.5); HEMATOCRIT 33.6 % (32.4-45.2); HEMOGLOBIN 11.2 GM/dL (10.7-15.3); LYMPH % 41.8 % (8-40); MCH 28.5 pg (25.7-33.7); MCHC 33.4 g/dl (32.0-36.0); MEAN CELL VOLUME 85.3 fl (80-96); MEAN PLT VOLUME 8.6 fl (7.5-11.1); MONO % 9.4 % (3.8-10.2); NEUT % 46.6 % (42.8-82.8); PLATELET COUNT 203 10^3/uL (134-434); RBC 3.95 M/mm3 (3.60-5.2); RDW 15.7 % (11.6-15.6); WHITE BLOOD COUNT 5.2 K/mm3 (4.0-10.0)
[2021-02-15 10:52] LABS: CALCIUM 9.3 mg/dL (8.5-10.1)
[2021-02-15 10:53] LABS: ALBUMIN 2.9 g/dl (3.4-5.0); BLOOD UREA NITROGEN 14.9 mg/dL (7-18)
[2021-02-15 10:56] LABS: CREATININE 0.9 mg/dL (0.55-1.3)
[2021-02-15 10:58] LABS: BILIRUBIN,TOTAL 0.4 mg/dL (0.2-1); TOT PROT 7.4 g/dl (6.4-8.2)
[2021-02-15] MEDS ORDERED: SODIUM CHLORIDE CP ONE (12:00)
[2021-02-15] MEDS ORDERED: FLUOROURACIL CP ONE (12:00)
[2021-02-15 16:39] VITALS: TEMP 98.9
[2021-02-15 16:47] VITALS: BP 112/58; PULSE 64
== END 2021-02-15 16:15 | disposition home or self-care (01) ==
LOC: JONCCHEMO 08:17
PROVIDERS: ATTEND Internal Medicine Hematology & Oncology
DX: Z51.11 Encounter for antineoplastic chemotherapy (principal); C18.9 Malignant neoplasm of colon, unspecified; I10 Essential (primary) hypertension; E11.9 Type 2 diabetes mellitus without complications
CPT/HCPCS: 36415; 80053; 85025; 96366; 96367; 96375; 96413; 96415; G0498; J1100; J2469; J9263

== ENCOUNTER 2021-05-28 13:50 | Emergency (ER) | payer OTHER, MEDICARE ==
[2021-05-28 13:59] VITALS: TEMP 97.7; BMI 37.0
[2021-05-28 16:20] LABS: BASO % 1.1 % (0-2.0); EOS % 0.8 % (0-4.5); HEMATOCRIT 35.5 % (32.4-45.2); HEMOGLOBIN 11.6 GM/dL (10.7-15.3); LYMPH % 39.7 % (8-40); MCH 27.5 pg (25.7-33.7); MCHC 32.6 g/dl (32.0-36.0); MEAN CELL VOLUME 84.6 fl (80-96); MEAN PLT VOLUME 9.2 fl (7.5-11.1); MONO % 4.2 % (3.8-10.2); NEUT % 54.2 % (42.8-82.8); PLATELET COUNT 233 10^3/uL (134-434); RDW 13.8 % (11.6-15.6); WHITE BLOOD COUNT 6.3 K/mm3 (4.0-10.0)
[2021-05-28 16:25] LABS: EPI CELLS 3 /uL (0-25.1); HYALINE CASTS 0 /uL (0-3.1); URINE APPEARANCE CLEAR; URINE BACTERIA 138 /uL (0-1359); URINE BILIRUBIN NEGATIVE (NEGATIVE); URINE COLOR YELLOW; URINE GLUCOSE (UA) NEGATIVE (NEGATIVE); URINE KETONE NEGATIVE (NEGATIVE); URINE LEUK ESTERASE TRACE (NEGATIVE); URINE NITRITE NEGATIVE (NEGATIVE); URINE PROTEIN NEGATIVE (NEGATIVE); URINE RBC 2 /uL (0-23.9); URINE UROBILINOGEN 0.2 mg/dL (0.2-1.0); URINE WBC 8 /uL (0-25.8)
[2021-05-28 16:37] LABS: CALCIUM 9.6 mg/dL (8.5-10.1)
[2021-05-28 16:38] LABS: ALBUMIN 3.6 g/dl (3.4-5.0); BLOOD UREA NITROGEN 20.8 mg/dL (7-18)
[2021-05-28 16:41] LABS: CREATININE 0.9 mg/dL (0.55-1.3)
[2021-05-28 16:43] LABS: BILIRUBIN,TOTAL 0.5 mg/dL (0.2-1)
[2021-05-28] MEDS ORDERED: SODIUM CHLORIDE 0.9% 500 ML INFUS.BAG IV ONE (17:44)
[2021-05-28] MEDS ORDERED: ACETAMINOPHEN 325 MG TABLET (FP) PO ONE (18:47)
[2021-05-28] MEDS ORDERED: ACETAMINOPHEN 325 MG TABLET (FP) ONE (19:12)
[2021-05-28 20:11] LABS: CALCIUM 8.6 mg/dL (8.5-10.1)
[2021-05-28 20:12] LABS: BLOOD UREA NITROGEN 18.3 mg/dL (7-18)
[2021-05-28 20:15] LABS: CREATININE 0.9 mg/dL (0.55-1.3)
[2021-05-28 21:21] VITALS: BP 144/78; PULSE 70
== END 2021-05-28 20:38 | disposition home or self-care (01) ==
LOC: JER 13:50
DX: R00.2 Palpitations (principal)
CPT/HCPCS: 36415; 80048; 80053; 81003; 82962; 84484; 85025; 87086; 87651; 93005; 93010; 99284-25

== ENCOUNTER 2021-07-03 17:17 | Emergency (ER) | payer OTHER, MEDICARE ==
[2021-07-03 17:28] VITALS: BP 152/73; PULSE 83; TEMP 98; BMI 37.4
[2021-07-03] MEDS ORDERED: IBUPROFEN 400 MG TABLET (FP) PO ONE ×2 (18:19→18:25)
== END 2021-07-03 18:55 | disposition home or self-care (01) ==
LOC: JERFT 17:17
DX: K02.9 Dental caries, unspecified (principal)
CPT/HCPCS: 99283-25

== ENCOUNTER 2022-01-16 08:45 | Emergency (ER) | payer OTHER, MEDICARE ==
[2022-01-16 09:06] VITALS: BP 152/69; PULSE 102; RESP 20; TEMP 98.6; BMI 37.4
[2022-01-16 10:48] LABS: BASO % 0.6 % (0-2.0); EOS % 1.8 % (0-4.5); HEMATOCRIT 37.8 % (32.4-45.2); HEMOGLOBIN 12.1 GM/dL (10.7-15.3); LYMPH % 31.9 % (8-40); MCH 26.7 pg (25.7-33.7); MCHC 32.1 g/dl (32.0-36.0); MEAN CELL VOLUME 83.1 fl (80-96); MEAN PLT VOLUME 9.6 fl (7.5-11.1); MONO % 6.7 % (3.8-10.2); PLATELET COUNT 233 10^3/uL (134-434); RBC 4.55 M/mm3 (3.60-5.2); RDW 13.8 % (11.6-15.6); WHITE BLOOD COUNT 5.9 K/mm3 (4.0-10.0)
[2022-01-16 11:06] LABS: ALBUMIN 3.4 g/dl (3.4-5.0); BLOOD UREA NITROGEN 22.6 mg/dL (7-18); CALCIUM 9.5 mg/dL (8.5-10.1); MAGNESIUM 2.3 mg/dL (1.8-2.4)
[2022-01-16 11:11] LABS: BILIRUBIN,TOTAL 0.4 mg/dL (0.2-1); TOT PROT 7.4 g/dl (6.4-8.2)
== END 2022-01-16 13:20 | disposition home or self-care (01) ==
LOC: JER 08:45
DX: R00.2 Palpitations (principal); I35.0 Nonrheumatic aortic (valve) stenosis; I10 Essential (primary) hypertension
CPT/HCPCS: 36415; 71046-TC-FY; 71275-TC; 80053; 83735; 84443; 84484; 85025; 85379; 93005; 93010; 99291; Q9967

== ENCOUNTER 2022-07-26 15:35 | Emergency (ER) | payer OTHER, MEDICARE ==
[2022-07-26 15:52] VITALS: RESP 16; BMI 37.4
[2022-07-26] MEDS ORDERED: MAG HYDROX/AL HYDROX/SIMETH 30 ML UNIT-DOSE CUP PO ONE (16:41)
[2022-07-26] MEDS ORDERED: FAMOTIDINE 20 MG/50 ML IVPB 20 MG/50 ML MG IVPB ONE ×2 (16:41→17:11)
[2022-07-26] MEDS ORDERED: MAG HYDROX/AL HYDROX/SIMETH 30 ML UNIT-DOSE CUP ONE (17:11)
[2022-07-26 17:32] VITALS: PULSE 68
[2022-07-26 18:05] LABS: BASO % 0.8 % (0-2.0); EOS % 1.8 % (0-4.5); HEMATOCRIT 35.4 % (32.4-45.2); HEMOGLOBIN 11.5 GM/dL (10.7-15.3); LYMPH % 32.7 % (8-40); MCH 26.1 pg (25.7-33.7); MCHC 32.6 g/dl (32.0-36.0); MEAN CELL VOLUME 80.2 fl (80-96); MEAN PLT VOLUME 9.4 fl (7.5-11.1); MONO % 7.1 % (3.8-10.2); NEUT % 57.6 % (42.8-82.8); PLATELET COUNT 183 10^3/uL (134-434); RBC 4.42 M/mm3 (3.60-5.2); WHITE BLOOD COUNT 5.9 K/mm3 (4.0-10.0)
[2022-07-26 18:29] LABS: CALCIUM 9.3 mg/dL (8.5-10.1)
[2022-07-26 18:30] LABS: ALBUMIN 3.3 g/dl (3.4-5.0); BLOOD UREA NITROGEN 29.5 mg/dL (7-18)
[2022-07-26 18:33] LABS: CREATININE 1.5 mg/dL (0.55-1.3)
[2022-07-26 18:34] LABS: BILIRUBIN,TOTAL 0.7 mg/dL (0.2-1); TOT PROT 7.5 g/dl (6.4-8.2)
[2022-07-26] MEDS ORDERED: LACTATED RINGERS SOLUTION 1000 ML INFUS.BAG IV ONE (19:38)
[2022-07-26 21:35] VITALS: BP 150/62; TEMP 97.2
[2022-07-26 22:54] LABS: BLOOD UREA NITROGEN 26.1 mg/dL (7-18)
[2022-07-26 22:57] LABS: CREATININE 1.2 mg/dL (0.55-1.3)
== END 2022-07-26 23:26 | disposition home or self-care (01) ==
LOC: JER 15:35
PROC: 3E033GC Introduction of Other Therapeutic Substance into Peripheral Vein, Percutaneous Approach (ICD-10-PCS; principal; 2022-07-26)
DX: I35.0 Nonrheumatic aortic (valve) stenosis (principal); R07.9 Chest pain, unspecified
CPT/HCPCS: 36415; 71045-TC-FY; 80048; 80053; 84484; 85025; 93005; 93010; 99285-25

== ENCOUNTER 2024-07-04 14:06 | Observation (INO) | payer OTHER, MEDICARE ==
[2024-07-04 15:22] LABS: ABSOLUTE IMMATURE GRANULOCYTES 0.01 x10^3/uL (0.0-0.031); BASOPHILS # 0.02 x10^3/uL (0.01-0.08); HEMOGLOBIN 13.2 g/dL (11.2-15.7); MCHC 30.7 g/dl (32.2-35.5); MEAN CELL VOLUME 87.2 fl (79.4-94.8); MEAN PLT VOLUME 11.8 fl (9.4-12.3); MONOCYTE # 0.37 x10^3/uL (0.24-0.86); MONOCYTE % 13.7 % (4.7-12.5); PLATELET COUNT 197 x10^3/uL (182-369); RDW 14.1 % (12.4-16.6)
[2024-07-04] MEDS: SODIUM CHLORIDE 0.9% 500 ML INFUS.BAG IV ONE (15:27)
[2024-07-04 15:50] LABS: ALBUMIN 3.2 g/dl (3.4-5.0); CALCIUM 8.8 mg/dL (8.5-10.1)
[2024-07-04 15:51] LABS: BLOOD UREA NITROGEN 24.5 mg/dL (7-18)
[2024-07-04 15:54] LABS: CREATININE 1.5 mg/dL (0.55-1.3)
[2024-07-04 15:55] LABS: BILIRUBIN,TOTAL 0.5 mg/dL (0.2-1); TOT PROT 7.5 g/dl (6.4-8.2)
[2024-07-04] MEDS ORDERED: OSELTAMIVIR PHOSPHATE 75 MG CAPSULE ONE (18:37)
[2024-07-04] MEDS: OSELTAMIVIR PHOSPHATE 75 MG CAPSULE PO ONE (18:41)
[2024-07-04 21:06] VITALS: BMI 37.3
[2024-07-04] MEDS: HEPARIN NA (PORCINE) 5,000 UNITS/ML 1ML VIAL SQ SCH (21:48)
[2024-07-04] MEDS: ROSUVASTATIN CA 10 MG TABLET PO SCH (21:48)
[2024-07-05] MEDS: ACETAMINOPHEN 325 MG TABLET (FP) PO PRN (05:40)
[2024-07-05 08:39] LABS: BASOPHILS # 0.02 x10^3/uL (0.01-0.08); HEMATOCRIT 37.9 % (34.1-44.9); HEMOGLOBIN 11.8 g/dL (11.2-15.7); MCHC 31.1 g/dl (32.2-35.5); MEAN CELL VOLUME 85.4 fl (79.4-94.8); MEAN PLT VOLUME 11.7 fl (9.4-12.3); MONOCYTE # 0.45 x10^3/uL (0.24-0.86); MONOCYTE % 11.5 % (4.7-12.5); PLATELET COUNT 188 x10^3/uL (182-369); RDW 13.8 % (12.4-16.6)
[2024-07-05 08:47] LABS: POTASSIUM 4.4 mmol/L (3.5-5.1)
[2024-07-05 08:54] LABS: ALBUMIN 2.9 g/dl (3.4-5.0); BLOOD UREA NITROGEN 19.7 mg/dL (7-18); CALCIUM 8.3 mg/dL (8.5-10.1); MAGNESIUM 2.4 mg/dL (1.8-2.4)
[2024-07-05 08:57] LABS: BILIRUBIN,TOTAL 0.4 mg/dL (0.2-1); PHOSPHOROUS 3.3 mg/dL (2.5-4.9); TOT PROT 6.5 g/dl (6.4-8.2)
[2024-07-05 09:03] LABS: N-TERMINAL BNP 333.9 pg/ml (5-450)
[2024-07-05] MEDS: LACTATED RINGERS SOLUTION 1,000 ML/1,000 ML INFUS.BAG IV SCH (10:03)
[2024-07-05] MEDS: ASPIRIN COATED 81 MG TABLET.EC PO SCH (10:03)
[2024-07-05] MEDS: INSULIN ASPART SLIDING SCALE (NOVOLOG) 1 VIAL SQ SCH (10:03)
[2024-07-05] MEDS: OSELTAMIVIR PHOSPHATE 30 MG CAPSULE PO SCH (10:03)
[2024-07-05] MEDS: OSELTAMIVIR PHOSPHATE 75 MG CAPSULE PO SCH (22:15)
[2024-07-06] MEDS: INSULIN (LEVEMIR) 100 UNITS/ML UNITS SQ SCH (06:29)
[2024-07-06 06:39] LABS: HEMATOCRIT 40.8 % (34.1-44.9); HEMOGLOBIN 12.4 g/dL (11.2-15.7); MCHC 30.4 g/dl (32.2-35.5); MEAN CELL VOLUME 86.3 fl (79.4-94.8); MEAN PLT VOLUME 11.2 fl (9.4-12.3); PLATELET COUNT 179 x10^3/uL (182-369); RDW 13.6 % (12.4-16.6)
[2024-07-06] MEDS: guaiFENesin 200 MG/10 ML 10 ML UNIT-DOSE CUPS PO ONE (06:43)
[2024-07-06 07:00] LABS: POTASSIUM 4.5 mmol/L (3.5-5.1)
[2024-07-06] MEDS ORDERED: INSULIN (LEVEMIR) 100 UNITS/ML UNITS SQ SCH (07:00)
[2024-07-06 07:02] LABS: CALCIUM 8.8 mg/dL (8.5-10.1)
[2024-07-06 07:03] LABS: BLOOD UREA NITROGEN 15.7 mg/dL (7-18)
[2024-07-06 07:06] LABS: CREATININE 0.9 mg/dL (0.55-1.3)
[2024-07-06] MEDS ORDERED: guaiFENesin 200 MG/10 ML 10 ML UNIT-DOSE CUPS PO PRN (09:19)
[2024-07-06 11:40] VITALS: BP 127/82; PULSE 79; RESP 18; TEMP 98.2
== END 2024-07-06 17:56 | disposition home or self-care (01) ==
LOC: JER 14:06 → JERBED 16:10 → J4S 20:00
PROVIDERS: ADMIT Student in an Organized Health Care Education/Training Program; ATTEND Nurse Practitioner Acute Care
PROC: 3E023GC Introduction of Other Therapeutic Substance into Muscle, Percutaneous Approach (ICD-10-PCS; principal; 2024-07-04)
PROC: 3E0337Z Introduction of Electrolytic and Water Balance Substance into Peripheral Vein, Percutaneous Approach (ICD-10-PCS; 2024-07-04)
DX: R55 Syncope and collapse (principal); N17.9 Acute kidney failure, unspecified; J09.X2 Influenza due to identified novel influenza A virus with other respiratory manifestations; D72.819 Decreased white blood cell count, unspecified; D72.821 Monocytosis (symptomatic)
CPT/HCPCS: 0241U-QW; 36415; 70450-TC; 71045-TC-FY; 80048; 80053; 82962; 83036; 83735; 83880; 84100; 84443; 84484; 85025; 85027; 93005; 93010; 93306-TC; 96360; 96372; 99285-25; G0378; J1644

== ENCOUNTER 2025-01-15 10:04 | Emergency (ER) | payer OTHER, MEDICARE ==
[2025-01-15 10:12] VITALS: RESP 20; BMI 37.0
[2025-01-15 11:51] LABS: ABSOLUTE IMMATURE GRANULOCYTES 0.09 x10^3/uL (0.0-0.031); BASOPHILS # 0.04 x10^3/uL (0.01-0.08); EOSINOPHIL % 0.6 % (0.7-5.8); EOSINOPHILS # 0.04 x10^3/uL (0.04-0.36); MCHC 31.5 g/dl (32.2-35.5); MEAN CELL VOLUME 84.9 fl (79.4-94.8); MEAN PLT VOLUME 12.6 fl (9.4-12.3); MONOCYTE # 0.42 x10^3/uL (0.24-0.86); MONOCYTE % 6.5 % (4.7-12.5); RDW 17.1 % (12.4-16.6)
[2025-01-15 12:09] LABS: URINE APPEARANCE TURBID; URINE BILIRUBIN LARGE (NEGATIVE); URINE COLOR DK YELLOW; URINE GLUCOSE (UA) 3+ (NEGATIVE); URINE KETONE NEGATIVE (NEGATIVE)
[2025-01-15 12:10] LABS: URINE LEUK ESTERASE 1+ (NEGATIVE); URINE NITRITE POSITIVE (NEGATIVE); URINE PROTEIN 2 (NEGATIVE); URINE UROBILINOGEN 2.0 mg/dL (0.2-1.0)
[2025-01-15 12:14] LABS: GLUCOSE,RANDOM 190.0 mg/dL (74-106)
[2025-01-15 12:15] LABS: TOT PROT 7.0 g/dl (6.4-8.2)
[2025-01-15 12:17] LABS: ALK PHOS 618.0 U/L (40-150)
[2025-01-15 12:20] LABS: CREATININE 0.81 mg/dL (0.55-1.3); SGOT/AST 245.0 U/L (5-34); SGPT/ALT 216.0 U/L (0-55)
[2025-01-15 12:21] LABS: CO2 19.0 mmol/L (21-32)
[2025-01-15] MEDS ORDERED: CEFTRIAXONE 1 GM/50 ML BAG ONE (14:31)
[2025-01-15] MEDS: SODIUM CHLORIDE 0.9% 500 ML INFUS.BAG IV ONE (15:30)
[2025-01-15 18:48] LABS: HCV DIAGNOSTIC IN-HOUSE W/RFLX NON-REACTIVE (NONREACTIVE); HIV INTERPRETATION NEGATIVE (NEGATIVE)
[2025-01-15 20:25] VITALS: BP 143/73; PULSE 93; TEMP 98.2
== END 2025-01-15 20:38 | disposition short-term general hospital (02) ==
LOC: JER 10:04
DX: K72.90 Hepatic failure, unspecified without coma (principal); R68.2 Dry mouth, unspecified; R82.90 Unspecified abnormal findings in urine; N39.0 Urinary tract infection, site not specified
CPT/HCPCS: 36415; 76705-TC; 80053; 81003; 85025; 86803; 87086; 87389; 99285-25